=== PATIENT | female | born 1975 | race Caucasian/White ===

== ENCOUNTER 2021-11-03 08:10 | Emergency (ER) | payer BC, SELFPAY ==
[2021-11-03 08:53] LABS: Hematocrit 25.6 % (36.0-45.0); Lymphocytes % 22.7 % (15.3-44.8); MCV 81.4 fL (80-100); MPV 7.3 fL (7.6-11.3); RBC Red Blood Cell Count 3.15 M/uL (3.86-4.86)
[2021-11-03 09:05] LABS: Albumin 3.4 g/dL (3.4-5.0); Bilirubin Total 0.4 mg/dL (0.2-1.0); Protein, Total 7.6 g/dL (6.4-8.2)
--- NOTE | 2021-11-03 09:48 | RAD REPORT ---
EXAM DESCRIPTION: CTAbdomen Pelvis W Contrast - 11/03/2021 9:36 am CLINICAL HISTORY: Abdominal pain. Abdominal pain, acute, nonlocalized COMPARISON: No comparisons TECHNIQUE: Biphasic CT imaging of the abdomen and pelvis was performed with 100 ml non-ionic IV cont rast. All CT scans are performed using dose optimization technique as appropriate and may include automated exposure control or mA/KV adjustment according to patient size. FINDINGS: The lung bases are clear. The liver, spleen, pancreas, adrenal glands and kidneys are within normal limits. No bowel obstruction, free air, free fluid or abscess. The appendix is normal. No evidence of signi ficant lymphadenopathy. No suspicious bony findings. Fibroid uterus. IMPRESSION: No acute intra-abdominal or pelvic finding. Fibroid uterus.
[2021-11-03 11:02] LABS: Urine Blood Negative (Negative); Urine Glucose Negative (Negative); Urine Protein Negative (Negative); Urine Specific Gravity 1.015 (1.005-1.030); Urine pH 7.5 (5.0-7.0)
[2021-11-03 11:19] LABS: SARS-CoV-2 Antigen Rapid Res Negative (Negative)
--- NOTE | 2021-11-03 11:46 | EDPHYS ---
Physician Documentation [facility] Name: Lamar Salvador Age: 46 yrs Sex: Female : 1975 Arrival Date: 11/03/2021 Time: 08:13 Bed 5 Private MD: Mohini Ruiz H ED Physician Tyler Hannah HPI: 11/03 08:30 This 46 yrs old Female presents to ER via Ambulatory with complaints of Rectal Bleeding.jr11 08:30 The patient presents to the emergency department with bleeding from the rectum/anus, jr11 that is moderate, LAP. Onset: The symptoms/episode began/occurred 90 days. Modifying factors: The symptoms are alleviated by nothing, The symptoms are aggravated by nothing. Associate signs and symptoms: Pertinent positives: abdominal pain in the right lower quadrant and left lower quadrant, lower GI bleeding. no recent colonoscopy . 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 - Social history:: Smoking status: Patient reports the use of cigarette tobacco products, denies chronic smoking, but will smoke occasionally. ROS: 08:30 All other systems are negative. jr11 Exam: 08:30 Constitutional: This is a well developed, well nourished patient who is awake, alert, jr11 and in no acute distress. Head/Face: Normocephalic, atraumatic. Eyes: Extra-ocular motions intact. Lids and lashes normal. Conjunctiva and sclera are non-icteric and not injected. Cornea within normal limits. Periorbital areas with no swelling, redness, or edema. ENT: Nares patent. No nasal discharge, no septal abnormalities noted. Oropharynx with no redness, swelling, or masses, exudates, or evidence of obstruction, uvula midline. Mucous membranes moist. Neck: Trachea midline, no thyromegaly or masses palpated, and no cervical lymphadenopathy. Supple, full range of motion without nuchal rigidity, or vertebral point tenderness. No Meningismus. Cardiovascular: Regular rate and rhythm with a normal S1 and S2. No gallops, murmurs, or rubs. Normal PMI, no JVD. No pulse deficits. Abdomen/GI: TTP lower abd, no peritonitis MS/ Extremity: Pulses equal, no cyanosis. Neurovascular intact. Full, normal range of motion. Neuro: Awake and alert, GCS 15, oriented to person, place, time, and situation. No gross motor or sensory deficits. Vital Signs: 08:24 BP 169 / 104; Pulse 97; Resp 17; Temp 98.7; Pulse Ox 97% ; Weight 66.22 kg; Height 5 7 ft. 9 in. (175.26 cm); Pain 3/10; 08:30 BP 144 / 105; Pulse 94; Resp 17; Pulse Ox 98% on R/A; vg1 09:15 BP 141 / 103; Pulse 81; Resp 16; Pulse Ox 98% on R/A; vg1 10:50 BP 166 / 106 LA; Pulse 85; Resp 16; Pulse Ox 100% on R/A; vg1 11:00 BP 153 / 106 RA; Pulse 84; Resp 16; Pulse Ox 100% on R/A; vg1 11:45 BP 149 / 103; Pulse 70; Resp 16; Pulse Ox 99% on R/A; vg1 14:19 BP 146 / 100; Pulse 76; Resp 16; Temp 97.7; Pulse Ox 100% on R/A; Pain 2/10; bm7 16:11 BP 148 / 100; Pulse 80; Resp 16; Temp 98.0; Pulse Ox 100% on R/A; bm7 08:24 Body Mass Index 21.56 (66.22 kg, 175.26 cm) [facility] MDM: 08:30 Differential diagnosis: hemorrhoids, fissure, inflammatory bowel disease. Data jr11 reviewed: vital signs, nurses notes. 08:33 Patient medically screened. jr11 10:45 ED course: Pt states that bleeding is worse, cramping is worse with dizziness, will [place] jr11 for GI and colonoscopy. 11:44 ED course: Dr Li accepted SL. jr11 11/03 08:30 Order name: CBC with Diff; Complete Time: 08:55 jr11 11/03 08:30 Order name: CMP; Complete Time: 09:46 jr11 11/03 08:30 Order name: Lipase; Complete Time: 09:46 [facility] 11/03 08:30 Order name: Type And Screen; Complete Time: 09:53 [facility] 11/03 10:38 Order name: SARS RAPID; Complete Time: 11:43 eb 11/03 11:03 Order name: Urine Dipstick-Ancillary; Complete Time: 11:43 EDTX 11/03 08:30 Order name: CT Abd/Pelvis - IV Contrast Only; Complete Time: 09:53 [facility] 11/03 08:30 Order name: IV Saline Lock; Complete Time: 08:44 [facility] 11/03 08:30 Order name: Labs collected and sent; Complete Time: 08:44 [facility] 11/03 08:30 Order name: Urine Dipstick-Ancillary (obtain specimen); Complete Time: 11:08 [facility] 11/03 08:30 Order name: Urine Test (obtain specimen); Complete Time: 11:08 [facility] 11/03 11:09 Order name: Urine --Ancillary (enter results); Complete Time: 13:35 ss Administered Medications: No medications were administered Disposition Summary: 11/03/21 11:45 Transfer Ordered Transfer Location: Other Acute Care Facility jr11 Reason: Higher level of care jr11 Condition: Stable jr11 Problem: new jr11 Symptoms: are unchanged jr11 Accepting Physician: Dr. Jen Vasquez [facility](11/03/21 16:18) 7 Diagnosis - Lower Gi Bleed jr11 Forms: - Medication Reconciliation Form jr11 - SBAR form jr11 Signatures: Dispatcher [employer] [facility] Subhash Harrell RN RN jl7 Charla Mccoy Brittany RN RN bm7 Tyler Hannah MD MD jr11 Corrections: (The following items were deleted from the chart) 10:45 10:44 ED course: Per Sharron, transfer if GI unable to see in hospital. jr11 jr11 12:27 11:45 Jen perez 16:18 12[facility]27 [facility]
--- NOTE | 2021-11-03 11:46 | ER ---
Nurse's Notes [facility] Name: Lamar Salvador Age: 46 yrs Sex: Female : 1975 Arrival Date: 11/03/2021 Time: 08:13 Bed 5 Private MD: Mohini Ruiz H Diagnosis: Lower Gi Bleed Presentation: 11/03 08:24 Chief complaint: Patient states: Intermittent N/V/D with bloody stool and lower abd jl7 pain x 1.5 months. Coronavirus screen: At this time, the client does not indicate any symptoms associated with coronavirus-19. Ebola Screen: No symptoms or risks identified at this time. Initial Sepsis Screen: Does the patient meet any 2 criteria? No. Patient's initial sepsis screen is negative. Does the patient have a suspected source of infection? No. Patient's initial sepsis screen is negative. Risk Assessment: Do you want to hurt yourself or someone else? Patient reports no desire to harm self or others. Onset of symptoms was September 2021. Care prior to arrival: None. 08:24 Method Of Arrival: Ambulatory jl7 08:24 Acuity: CAL 3 jl7 Triage Assessment: 08:25 General: Appears in no apparent distress. uncomfortable, Behavior is calm, cooperative, jl7 appropriate for age. Pain: Complains of pain in right lower quadrant and left lower quadrant Pain currently is 3 out of 10 on a pain scale. Cardiovascular: Patient's skin is warm and dry. GI: Reports diarrhea, bloody stool, nausea, vomiting. 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 - Social history:: Smoking status: Patient reports the use of cigarette tobacco products, denies chronic smoking, but will smoke occasionally. Screenin:46 Abuse screen: Denies threats or abuse. Nutritional screening: No deficits noted. vg1 Tuberculosis screening: No symptoms or risk factors identified. Fall Risk No fall in past 12 months (0 pts). No secondary diagnosis (0 pts). IV access (20 points). Ambulatory Aid- None/Bed Rest/Nurse Assist (0 pts). Gait- Normal/Bed Rest/Wheelchair (0 pts) Mental Status- Oriented to own ability (0 pts). Total Greer Fall Scale indicates No Risk (0-24 pts). Assessment: 08:20 General: Appears in no apparent distress. uncomfortable, Behavior is calm, cooperative. vg1 Pain: Complains of pain in right lower quadrant and left lower quadrant Pain currently is 3 out of 10 on a pain scale. Pain began intermittently for 1.5 months. Neuro: Level of Consciousness is awake, alert, obeys commands, Oriented to person, place, time, situation. Cardiovascular: Patient's skin is warm and dry. Respiratory: Airway is patent Respiratory effort is even, unlabored. GI: Abdomen is flat, Bowel sounds present X 4 quads. Reports bloody stool, nausea. : No signs and/or symptoms were reported regarding the genitourinary system. EENT: No signs and/or symptoms were reported regarding the EENT system. Derm: Skin is intact, Skin is pink, warm \\T\\ dry. Musculoskeletal: Circulation, motion, and sensation intact. 10:03 Reassessment: Patient appears in no apparent distress at this time. No changes from vg1 previously documented assessment. Patient and/or family updated on plan of care and expected duration. Pain level reassessed. Patient is alert, oriented x 3, equal unlabored respirations, skin warm/dry/pink. pt stated "i didn't take my protonix this morning, would it be ok for me to take?" Provider notified and stated pt could take own medication. 11:06 Reassessment: Pt c/o lower ABD pain, rated 7/10, provider notified. vg1 11:06 Reassessment: Patient appears in no apparent distress at this time. Patient and/or vg1 family updated on plan of care and expected duration. Pain level reassessed. Patient is alert, oriented x 3, equal unlabored respirations, skin warm/dry/pink. 12:02 Reassessment: Patient appears in no apparent distress at this time. No changes from vg1 previously documented assessment. Patient and/or family updated on plan of care and expected duration. Pain level reassessed. Patient is alert, oriented x 3, equal unlabored respirations, skin warm/dry/pink. 14:22 Reassessment: Patient and/or family updated on plan of care and expected duration. Pain bm7 level reassessed. Patient is alert, oriented x 3, equal unlabored respirations, skin warm/dry/pink. 15:10 Reassessment: Patient and/or family updated on plan of care and expected duration. Pain bm7 level reassessed. Patient is alert, oriented x 3, equal unlabored respirations, skin warm/dry/pink. 15:13 Reassessment: Notified ERP of blood pressure and ERP did not want to give any orders. bm7 16:11 Reassessment: Patient and/or family updated on plan of care and expected duration. Pain bm7 level reassessed. Patient is alert, oriented x 3, equal unlabored respirations, skin warm/dry/pink. 16:12 Reassessment: notified patients concern of blood pressure to ERP. ERP states he will bm7 speak with patient. Vital Signs: 08:24 BP 169 / 104; Pulse 97; Resp 17; Temp 98.7; Pulse Ox 97% ; Weight 66.22 kg; Height 5 jl7 ft. 9 in. (175.26 cm); Pain 3/10; 08:30 BP 144 / 105; Pulse 94; Resp 17; Pulse Ox 98% on R/A; vg1 09:15 BP 141 / 103; Pulse 81; Resp 16; Pulse Ox 98% on R/A; vg1 10:50 BP 166 / 106 LA; Pulse 85; Resp 16; Pulse Ox 100% on R/A; vg1 11:00 BP 153 / 106 RA; Pulse 84; Resp 16; Pulse Ox 100% on R/A; vg1 11:45 BP 149 / 103; Pulse 70; Resp 16; Pulse Ox 99% on R/A; vg1 14:19 BP 146 / 100; Pulse 76; Resp 16; Temp 97.7; Pulse Ox 100% on R/A; Pain 2/10; bm7 16:11 BP 148 / 100; Pulse 80; Resp 16; Temp 98.0; Pulse Ox 100% on R/A; bm7 08:24 Body Mass Index 21.56 (66.22 kg, 175.26 cm) [facility] ED Course: 08:13 Patient arrived in ED. mr 08:13 Mohini Ruiz DO is Private Physician. mr 08:18 Tyler Hannah MD is Attending Physician. jr11 08:19 Chanell Kwan, RN is Primary Nurse. vg1 08:25 Triage completed. jl7 08:25 Arm band placed on right wrist. jl7 08:30 Initial lab(s) drawn, by me, sent to lab. Inserted saline lock: 22 gauge in right vg1 antecubital area, using aseptic technique. Blood collected. 08:46 Patient has correct armband on for positive identification. Placed in gown. Bed in low vg1 position. Call light in reach. Side rails up X 1. Door closed. Warm blanket given. 09:[address] via wheelchair. [facility] 09:38 CT Abd/Pelvis - IV Contrast Only In Process Unspecified. EDFL 09:54 called and left message with Dr. Wolff to call Dr. Hannah for patient consultation. eb 10:41 initiated a transfer with Sarah Zepeda Rn from the [facility]. eb 11:32 Sarah from [facility] called to ask for a 15 min extension. eb 11:[address] Li the hospitalist data acquisition technician for [facility] with Dr. Hannah eb for patient transfer consultation. 12:17 Diet: administrative approval given by Gini Zepeda Rn/ Patient has been accepted to [facility] B519/ Dr. Li has accepted the patient in transfer/ report to be called to [phone]. 15:10 No apparent distress. Resting quietly. transfer transportation to receiving facility. bm7 15:10 Report given to Beckie Granda RN. bm7 15:10 No provider procedures requiring assistance completed. Patient transferred, IV remains bm7 in place. 16:11 transfer transportation to receiving facility. bm7 Administered Medications: No medications were administered Medication: 08:47 VIS not applicable for this client. vg1 Outcome: 11:45 ER care complete, transfer ordered by . jr11 16:17 Transferred by ground EMS Note: [facility] bm7 16:17 Condition: stable 16:17 Instructed on the need for admit. 16:18 Patient left the ED. bm7 Signatures: Dispatcher [employer] Doris Larson mr Subhash Harrell RN RN jl7 Charla Mccoy Victoria, RN RN vg1 Supriya Baeza, RN RN bm7 Gisele Alvarez RN RN jh6 Tyler Hannah MD MD jr11 Corrections: (The following items were deleted from the chart) 11:36 10:41 initiated a transfer with Gini Elizondo Rn from the [facility] eb 11:45 11:[address] Chau the hospitalist data acquisition technician for [facility] with Dr. Hannah for eb patient transfer consultation. eb 12:26 11:[address] Chau the hospitalist data acquisition technician for [facility] with Dr. jf Hannah for patient transfer consultation. eb
[2021-11-03 13:31] LABS: Urine Specific Gravity/Preg 1.015 (1.005-1.030)
[2021-11-03 17:44] VITALS: O2SAT 100
[2021-11-03 17:47] VITALS: BP 148/100; TEMP 98
== END 2021-11-03 16:18 ==
LOC: ER 08:10
DX: K92.2 Gastrointestinal hemorrhage, unspecified (principal); F41.9 Anxiety disorder, unspecified; F17.210 Nicotine dependence, cigarettes, uncomplicated; Z98.82 Breast implant status; Z20.822 Contact with and (suspected) exposure to COVID-19
CPT/HCPCS: 36415; 74177; 80053; 81003; 81025; 83690; 85025; 86850; 86900; 86901; 87811; 99285; Q9967

== ENCOUNTER 2021-12-15 18:53 | Emergency (ER) | payer SELFPAY ==
--- OUTSIDE RECORDS SUMMARY | 2021-12-15 18:57 | XMS REPORT | Continuity of Care Document ---
:1975 Author Organization [facility] t Address [address] [place] [address] Care Team Providers Name Role Phone CISCO ANDERSON Attending Clinician Unavailable Cisco Anderson MD Attending Clinician Navneet Guzman MD Attending Clinician Tyler Damon MD Attending Clinician Larry Dunn CRNA Attending Clinician Zulema Beach MD Attending Clinician NAVNEET GUZMAN Admitting Clinician Unavailable Problems Condition Condition Condition Status Onset Resolution Last Treating Co mments Source Name Details Category Date Date Treatment Clinician Date Iron Iron Disease Active [facility] deficiency deficiency 813 [facility] anemia due anemia due 00:00: Me dical to chronic to chronic 00 Ce nter blood loss blood loss BRBPR BRBPR Disease Active [facility] (bright (bright 8[facility]12 [facility] red blood red blood 00:00: Medi christopher per per 00 Center rectum) rectum) 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 nativdiad 8-12 [facility] 00:00: Medical 00 Surprise 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 anxiety d anxiety 8-12 [facility] disorder disorder 00:00: Medica l 00 Center Tobacco Tobacco Disease Active [facility] use use 8-12 [facility] 00:00: Medical 00 Center GERD GERD Disease Active [facility] (gastroeso (gastroeso Soha kes phageal phageal Medical reflux reflux Center disease) disease) Allergies, Adverse Reactions, Alerts Allergy Allergy Status Severity Reaction(s) Onset Inactive Treating Comm ents Source Name Type Date Date Clinician NO KNOWN Allergy Active [facility] Family History Family Member Diagnosis Comments Start Date Stop Date Source Maternal grandmother Heart disease C [facility] Social History Social Habit Start Date Stop Date Quantity Comments Source History [facility] Alcohol Frequency Medical Center History SDOH [facility] Alcohol Std Drinks Medica l Center History SDOH [facility] Alcohol Binge Medical [facility] History of tobacco Cigarette Smoker [facility] use [facility] Center Alcohol intake 2021-11-06 2021-11-06 [facility]00 of alcohol Medical Center (finding) History [facility] 2021-11-03 2021-11-[address] [facility] Alcohol Comment 00:00:00 00:00:00 Medical C enter Tobacco use and 2021-11-03 2021-11-[address] [facility] exposure 00:00:00 00:00:00 Medical Center Sex Ass[birth year] At [birth year] [facility] [address] Soha kes 00:00:00 00:00:00 Medical Center Smoking Status Start Date Stop Date Source Current some day smoker 2021-11-03 00:00:00 [facility] Medications Ordered Filled Start Stop Current Ordering Indication Dosage Frequency Signature Comments Components Source Medication Medication Date Date Medication? Clinician (SIG) Name Name ALPRAZolam Yes anxiety 1mg Take [address] (XANAX) 1 -14 by mouth [facility] MG tablet 11:22: every Medical 01 night as Center needed for Anxiety. ferrous 2022- Yes 325mg Q.5D Take [address] sulfate 325 11-05 tablet [facility] (65 FE) MG 00:00: 23:59 (325 mg Med ical EC tablet 00 :00 total) by Cente r mouth 2 (two) times daily. pantoprazol 2021- No 40mg QD Take [address] e 11-05 tablet (40 [facility] (PROTONIX) 00:00: 23:59 mg total) M edical 40 MG 00 :00 by mouth Center tablet daily for 30 days. Vital Signs Vital Name Observation Time Observation Value Comments Source HEIGHT 2021-11-03 23:26:00 175.3 cm WEIGHT 2021-11-03 23:26:00 66.225 kg HEIGHT 2021-11-03 23:26:00 175.3 cm WEIGHT 2021-11-03 23:26:00 66.225 kg HEIGHT 2021-11-03 23:26:00 175.3 cm WEIGHT 2021-11-03 23:26:00 66.225 kg Systolic blood 2021-11-05 08:00:00 124 mm[Hg] [facility] Diastolic blood 2021-11-05 08:00:00 79 mm[Hg] [facility] Heart rate 2021-11-05 08:00:00 75 /min [facility] Body temperature 2021-11-05 08:00:00 37.17 Gayle [facility] Respiratory rate 2021-11-05 08:00:00 18 /min [facility] Oxygen saturation in 2021-11-05 08:00:00 97 /min [facility] Arterial blood by Medical Ce nter Pulse oximetry Body height 2021-11-03 23:26:00 175.3 cm [facility] Body weight 2021-11-03 23:26:00 66.225 kg [facility] BMI 2021-11-03 23:26:00 21.56 kg/m2 [facility] Procedures Procedure Date / Time Performing Source Performed Clinician CBC (HEMOGRAM ONLY) 2021-11-05 [facility] 04:07:00 [facility] BASIC METABOLIC PANEL (7) 2021-11-05 [facility] 04:07:00 [facility] BASIC METABOLIC PANEL (7) 2021-11-[address] [facility] 18:07:00 [facility] HEMOGLOBIN AND HEMATOCRIT 2021-11-[address] [facility] 18:07:00 [facility] PROLACTIN 2021-11-04 [facility] 18:07:00 [facility] FOLLICLE STIMULATING HORMONE (FSH) 2021-11-04 Af, Coriname d [facility] 18:07:00 [facility] LUTEINIZING HORMONE (LH) 2021-11-04 Afaq, Muhammed [facility] 18:07:00 [facility] TISSUE EXAM 2021-11-[address] [facility] 12:10:00 [facility] ESOPHAGOGASTRODUODENOSCOPY 2021-11-04 Baylee, Zulema [facility] 12:04:00 [facility] ABORH, MANUAL 2021-11-03 Helekar, Roselia [facility] 23:50:00 [facility] SARS-COV2/RT-PCR ([facility]) 2021-11-[address] [facility] 22:28:00 [facility] IRON, TIBC, % SAT. (WITHOUT 2021-11-03 Afaq, Muhammed [facility] FERRITIN) 22:19:00 [facility] CBC W/PLT COUNT & AUTO DIFFERENTIAL 2021-11-03aq, Kenodessam ed [facility] 22:19:00 [facility] COMPREHENSIVE METABOLIC PANEL 2021-11-[address] [facility], Muhammed [facility] 22:19:00 [facility] TSH/FREE T4 IF INDICATED 2021-11-03aq, Muhammed [facility] 22:19:00 [facility] FERRITIN 2021-11-03 Afaq, Muhammed [facility] 22:19:00 [facility] LIPID PANEL 2021-11-03 aq, Muhammed [facility] 22:19:00 [facility] HEMOGLOBIN A1C 2021-11-03 aq, Muhammed [facility] 22:19:00 [facility] PROTHROMBIN TIME/INR 2021-11-03 Afaq, Muhammed [facility] 22:19:00 [facility] MAGNESIUM 2021-11-03 Afaq, Muhammed [facility] 22:19:00 [facility] TYPE AND SCREEN, AUTOMATED 2021-11-03 Afaq, [facility]hammed [facility] 22:19:00 [facility] CBC W/PLT COUNT & AUTO DIFFERENTIAL 2021-11-03 Albaroaq, Sneha ed [facility] 22:19:00 [facility] SCREEN, URINE 2021-11-03 Afaq, Corinamed [facility] 22:03:00 [facility] RAPID DRUG SCREEN, URINE 2021-11-03 Afaq, Corinamed [facility] 22:03:00 [facility] Plan of Care Planned Activity Planned Date Details Comments Source Future Scheduled 2024-11-03 Lipid panel (procedure) [facility] Test 00:00:00 [code = 42041628] Medical Ce nter Future Scheduled 2021-11-23 INFLUENZA VACCINE (#1) [facility] 00:00:00 [code = INFLUENZA Medical Ce nter VACCINE (#1)] Future Scheduled 2021-03-[address] [facility] Test 00:00:00 (12+) [code = [facility] Center DEPRESSION SCREENING (12+)] Future Scheduled 1996-02-20 Screening for malignant [facility] Test 00:00:00 neoplasm of cervix Medical C enter (procedure) [code = 660582543] Future Scheduled 1994 DTAP/TDAP/TD VACCINES [facility] Test 00:00:00 (1 - Tdap) [code = Medical C enter DTAP/TDAP/TD VACCINES (1 - Tdap)] Future Scheduled 1993 HEPATITIS C SCRE[facility]ING [facility] 00:00:00 [code = HEPATITIS C Medical Center SCREENING] Future Scheduled [address] [facility] Test 00:00:00 0-64 YRS (1 - PCV) Medical C enter [code = PNEUMOCOCCAL VACCINE 0-64 YRS (1 - PCV)] Future Scheduled 1975 COVID-19 VACCINE (#1) [facility] 00:00:00 [code = COVID-[address] VACCINE (#1)] Future Scheduled 1975 CT Colonography (combo) [facility] Test 00:00:00 [code = CT Colonography [facility] (combo)] Future Scheduled 1975 Screening for malignant [facility] Test 00:00:00 neoplasm of colon Medical Ce nter (procedure) [code = 686313647] Future Scheduled 1975 Screening for malignant [facility] Test 00:00:00 neoplasm of colon Medical Ce nter (procedure) [code = 551243495] Future Scheduled 1975 Screening for malignant [facility] Test 00:00:00 neoplasm of colon Medical Ce nter (procedure) [code = 042813393] Future Scheduled 1975 Screening for malignant [facility] Test 00:00:00 neoplasm of colon Medical Ce nter (procedure) [code = 021497143] Future Scheduled 1975 Sigmoidoscopy [code = [facility] Test 00:00:00 Sigmoidoscopy] Medical Cente r Encounters Start End Encounter Admission Attending Care Care Encounter Source Date/Time Date/Time Type Type Clinicians Facility Department ID 2021-11-03 2021-11-05 Inpatient ER JEN, [facility] General Med [id number] [facility] 17:49:00 11:21:00 [facility] 2021-11-03 2021-11-05 Hospital Jen Cisco [facility] [id number] [facility] 17:49:00 11:21:00 Encounter Navneet Guzman [facility] 2021-11-04 2021-11-04 Anesthesia Tyler Damon [facility] [id number] 12:04:00 12:18:00 Event Larry Dunn Mannie [facility] 2021-11-04 2021-11-04 Surgery Baylee [facility] [id number] 11:35[facility]00 [facility]05[facility]03 2021-11-03 Travel [facility] [id number] [facility] 00:[facility]:00 00:00:00 [facility] Results Test Description Test Time Test Comments Results Result Comments Source Tissue Exam 2021-11-13 16:32:26 Test Item Value Reference Range Interpretation Comme nts Case Report (test code = 104) Surgical Pathology Report Case: [id number] Authorizing Provider: Zulema Beach MD Collected: 11/04/2021 12:10 PM Ordering Location: [facility] Med Surg 5th Floor Received: 11/06/2021 09:06 AM Pathologist: Roselia Wolf MD Specimens: A) - Small Bowel, NOS, biopsy B) - Biopsy, Gastric, antrum and body ADDENDUM (test code = 3381) w6qinBQaRFEhcGW2PySuGTXsa1baq4TssPLjtQF y VEabtAKypsCjkh30yHI1sZ10RE5hGVEfRaN5CGEg qxD7Box5XTKkJMNqjWMuH285n2ozd6yyjfSmuKD5 kTdpSVYmkqiyZlB5WGteMQVhjcieRAu3SRtzKAYe uKR3PSVihWCwH5KuEXKiLQ4gydx5FQH1OSruJBMd AoA8NFOnxDGwUZFubQxtPZauy243MHY1HyAiZNZg dlMllIwcwK8rTrQnBSHHoLcjQIAwCIFaEOUlTAsh NBkkz5FyGXG3cqKyFKTveiYedBcsNNBmq0PptLPd LpFraO54bs4taHE6z9CxVN1zC8HzOKT3tCS4JXCf lqXYVCkzD59dGDV5APGzzDunw2DkUgdkTEPiJIZK RUdBVElWRVxwYXJcflxwYXIgVGhlIGludGVycHJl yQB0pI3oSJ1bJPCcsGGxQ2BhGDSwkkEcnVVaXSQ3 vCRwvYTuKI6yOIwadIXpx2dgw6OfJ6zsyMlmtNM2 WM4qIEHcHHIoDQtmh8WxxE2qKbgsWZOnwzfFPZmU Y6HYI8KZLfSNTGqBHwtnjBEwVTvttALbe5tzt6Oq C3rkpQkqcEW0LWRgD9qybHBbzPN3MJV0jL3iGPtc jbYzRERam5RuMCPbWKPjBfX5uQ0oQHL1KwDPuFjl HMH3MmB6VThaRWYgYS6oEGrgTKpwC2AitUDrJHXH BZAkh4rwJ6buLDIaj7ZebT2rcBZ4oHZwJJLfhNV6 MIYzUOQ5WNbqzWRnCVCnJEKjaGVwaKWkOf4seMFa S2TbZ0ndavBhcTBnqOE2sXObUXemrfHiOHA7JSRs aS3vKE6rDZEpsZCvFU4snZPrBIKsWQWfDVKsDCRk i0MaHVYqut83AZZpTdqllEszDFAzTv8sDg3uKMIj nbTyNFH3GqOUTS8wuydrdCFkiRbmqg3xRUvkJFSR WSIfUTFbBLG1SZVkpD3iOXL8rZI6PCF5P2viV6pw DHFmagWnWD2wPMYiyYPbfzPfNWjcLU2ppGBkLDSs o8KbyapzQLRbPAH1YWZ2IWsaLAYuRJVuPa5bQVXb bV1nJ5AcJRI3gdEfh3SxGhBJiURkfS98pWSkoc39 BWZtWGGuO9CtOTUwOOQsAQgqdjOjeLjuSSBdr07n sXBfbwLha5DogyRpOTFiB0ziDOSupEUeeNRyg6Nf eW5ffUMuvrNdXKR4pKBeGODrdQ5wKSTyyNjhZALm oI1zY0GmSHhbEj4sEHHhwimkYZ7wrz94BN5xnxMv GG6oixLqCK95nbRxRvGhUNc4DVhRESyQCMi1UIEd suMeyEDddNOuEGPrgX8gzEUvYs0xpDWpdBjrGXFs yWOuIHzrxPbnV3vatulfJXxcxGTgn6UxtJ1raPL1 IZI0tC9yBnxdKQDlotzeJFTwH7PECFQNURK7ZWz5 MzQyXHBhclx+IFxwYXJ9 DIAGNOSIS (test code = 3220) t1hdwTOdYYAkq6gyMREjvCKbGcUeVfReYfBcFl pc dWMxIHtccnRmMVxlcGljOTYwMlxhbnNpXHNwbHRw H9XqqcxvAHxuPJ6qBQ5iiBfcaDSmpPCwOZPnXoBo r5cpp293pXZsi9khTLTMnedphPd2gKybY82pj0Y8 DqngY08bpXGeAPO2UIZaAOGljCGhICNoCKW9TDDu wYKfY9uyMHZdCR3qmkujZEnsRAmpYIDkxXX1RLSw hVDiH9VaJADgLFrnCSLsvck4QiWgCq5cpTErjMaa BAaxCCHjUDHtFWzlAANyXeEbUM0yE69KNOdcAk2C CMmuWe3XHTCWZmTII7CNLGgWLCVKK9UQGQacyCHg GYBbVBTNCVdSEXZIZ8GHMK4RT49BGJBWPVXMIL5C IVCGUQaWHD4UGGJpMCyETKDDNFwFFfucKBQwSZ4t Ut3dNoMHLYBIZVXlB8LlERXDULhPEZNUI7KZBgmL VBWoBSKTH2DHMAukEDLyZR9uNk1zWmNBHUGMEOUq X0HmW9JKZXTZDZKWI8FIM7ZuE3CCOkxwUVXtIF5d Gt1xH4NNXtSDK18JZjwxEZjWBMfZE8hHBT4XKB5B LXrVXcJOJ7zuKk7WQGCjmFEsGBTycoXDKnMWWA3Q NVZNTMNDPwJVF1PAOVdJVUNHC6ENFGuftHWxLETl IHSHJLMPWBHNLHQFWVlOQ0CNFQTcNHXZV8KDOHtW TCjsHFpGKYVLDJOBNjqCZRpWZ1CUMXMHBsEYEFGM NT0RU0TULq4OBCxiQHPULLLDCUjzxLBuSBFeEE1I IElOVEVTVElOQUwgTUVUQVBMQVNJQSBTRUVOXHBh fwDzTNSSEbWBBWKMDNOBTQZfB9EwBELXNWrXMS5J OJALG4KXLGenAOFhRK4iAQ8MQM6CKDzRYB6WDNAR AOUTJXYDNXGVYzITK0SfAUEQENXKWsQFEFKNDZDM EV3HXJJMSgQTTSvXAuATA15BEwGSGjCPRKLOZpAY NOFIVXOBNaNdM4vBNYHIW6bHT1cuoKFzIDTfmd18 VCF5HmJfb2G4PKS6HBOkGVUft7aqBGZbsUWpAuSx VxTeEcQyQupgvAFuSACtSwIqa2pji303tNRbb6ib ZZZdQiH0rEZtJSJriOVvD048CQKfHJnvl3jyd2Pd QXDgkKIyb4J8LHFLndhnaQz0uRtcM06iv8I5Mmgt F0zkZAEcDAZdP9OyWR5vUMDhAkm6JZW4HEQ2NWYd LYPaF9UvZU1eMDUtlHJrBTr8s0agyEfnWKRcQCP2 t4vqJEmdbrUgFG9bdo0kyLj1w1evfnTgIEWgFBCx dOIUCQOtP2UzxOtdTy1lqJx0yXcmMiyaUUY4Gso2 XK9zph12ukc4bTbrZAOtriqgUmR0RIfqHGSzgetn PLi1QQvfXUGrkGA2IDIfjFPiE1WjQURwPW3jzwq5 JID9POtiVFTfNpP6RAXkkIRiGMGcxIjbXDcfd125 IFR8PfWjKA0cV8Eqg4V0pA1qjFIsCNVfjIKhVhXb SMYjig9rbMEhAKogp4SnZVB4wcM7aGGfeLJfNQUl SvJ3VFdaHR5kee59TRUiABA9tm7wzTExvOvtzoQf lCFfFTonJ0SxXCMqi676BZHfS9UhWFEsa4B5rlXe OwBeTLNgzZK0eqC5PAEbPF6gtsxic0xrRFogANrn PBSuwhC2jhT0LVXsjPOzL5DnbB5rDGAiZA8nqwef k1yhEWV6RKizKKDkREH9QkLaERKqx7Zqsla6LxAw m8RidVFnANmvD05km574SXKbqqQtP3mktUCdzose tBAyttgyVDftbkI8OHDwFCugxvayUMLnKFcjF3ka SfGkWWAkdYcuYMhbw7UaBDXlNHPmAaDacPKwDPNs Big7JYEnvDTpUZRfNrAlS7fzkwkkCkDBKZHwb0ss A9rltRPLbRRvX0OxFTmvipHeNTbrDExkVpolPUVw Nw66HJUyHPLghz93 CPT Code(s) (test code = 8617) w2gkeXFgLWJniBM4UbIlATZgj5vsm0LbpKQs cGFy NOnjsEWhjuUofq41sCO9bN91ZA8gPCDuGtP3EBCx scX8Uvd0JOUhOZVbcCMdY255l8vdo5hiwzQjrHT3 iZlrRKDnrkkoAmJ7GEefRLWfvgmoDAc9WRqwCXAz vOG4IIVgyBBvW8VtDFDpMM8frri6JQL9TFafRMUx UnA2CTBjrVVaGQOywEjzMUbwz930XXW7RhYpPJAg unUlhMbjgU9cQpDrKXV8BEYuJKFNAFRcpAGqvV== CLINICAL HISTORY (test code = 3356) r8rebFKxZQNxhKW7VvCwCTFsa6poo6B sdHBncGFy XBzudIRwzzCdhb62mEF2cP15RV3fCFKdVpR1RKRh clV2Snb5URRrAZIhzWItI496t9hoq1wxsuLdiDD7 fOnpHUZgznddBwX0EWpqAMXgswfqNMs4UFryXQJf nLW1EZCyoPLgL3UwJTMcMD8pgnm3TIO0HEwbEVTj FcL3NSTfpWHbPMXhwYdkSGzea299ALW3XaVaKPYw riScoQrubX4xZyIcREIXvQSvQZ0wNPQasq4= GROSS DESCRIPTION (test code = g2cgjBSwTIOjgOXYNPMeD1pmqdQbCYCgxTHz [facility] [id number]) [file] MF6jfZ3HmT== MICROSCOPIC DESCRIPTION (test code = j7urqEIiSJPsuIN3PiVeBUVru5scu1 BsdHBncGFy 3371) HVdagZWuzaYadq33bZW3iG92WT4yMTWlBzK5HVDj plR3Wbs6OAQvSHPjrNNmE825e5wbc5fjvnOhrFF9 oDxwHTKenswiUiX5GRuvESAkkzvtLXj0IQmsCAOj aET7ESScvFLoN7TcJDTkTM3ixrk3IJZ1DSpmNZKl QhG6ZDVjeYBzYMUgbTzsEOfvk730UAE3DsTdIORg tsKptBgvlE4oUaUgSIIEPCWYE2SZEPOwlKGhgG== SPECIAL STUDIES (test code = 3376) e7vvtXSrRDEyv7zfMGOmpOWnQcYbKoJg ZnRuYmpc jLGdGPalogUnGXynm8PqQ3FrWyPtZCglaqUjWTEi HzdlbhqtDGJbLBN9uvVtEBAaJArrNOBgGHgyCw3g cAFmrTkoVnDmBXMdz6vwiyYOiqcbfQm2d1fwGUTg SaG1iDVqAJgsE2fiddZmiNTfZ5XnoOMubXv5q9vr OqDkMyG1pQAwZWfsK1mduvZbzWJkHUCxYFp2iZ53 YOPviS1rtDBfKPffifCiVhR4ODgaVZIxMgW5HTAu jWEqQGDdG2vvNPKqPQoxSSYfVVgvpAYgWOW5bKvo y4D2lOGwpUQeiSgmXeRkEeUmAoXGo6HpQBd6gAef V8IsBWBmDwG7tZRfQWOmVHnpSUBlHWMnfjV0uSax zmTxc01boRElHPDyKTLiOpFcpYonUZStOARKk3Wf pLtaKLQ0dHc1hKloVcmdFOZ6Tjw3DA3wwh70yyl5 yTlsGOIbpvnjHfD7YRixXBIfgqwlFFr1DEmvLJZe aEI3VYVblVZzI2QdAZQzVC3cmrq8FUS0UZngXBXv FwR9FXDumVDrSEIvxZzyHVxau932XDV4ZuUwBO6t L0Cqn5A4bJ6roFMbZRAadZXtXrLtALTvch8afOQj MYcau8SuBXS9vsM6nWWehIMpRILfXO65Jfsxn0Qf Ehwmo2FfQ54xoTY4RWujm8ncZY6gGmN1anJyDDcx e9xoxX4lXxI0GEqjNC5kXO9fPSUmtL4wmbjeYRZb GwVthfnbPPGalRnlfpEwKe4hvYxqSCY8ODvoW3tm pF3wVfZ8HCphB1bycO0wCXl8ALseeGQ1GQJzyQ1i LS2wdzfit2cbNWhiRAqsVSAdqaK5uvB0VGRmgNZx I4IcpO1hAIImGP9xuyocz1nsZRR7GAeiLTTfJFU2 SfZbTPDib7Qavsf3NrAab9PoaBQiYNkuJ61he636 SDIhdxTqF5xtmLEbjeisnQEvyhxzDJqnpvW5CEDh XHBsYWluXGYxXGZzMjJcbGFuZzEwMzNcaGljaFxm NJfnPrPoCZMeONroU7eqHkSpT3FqIFHyLcIdKRfh ITafcPWjdYUrlHG9sC4xUY8hABJefYLvZ8FwOBMh llBslCHoYSU0kLHurDFuPL1vBQnjjYDne2afv0Bn T7msjPbqeAP5XS7wWRErBWKpFIssb6ZqoL7uTrtx cWJohvzoBYmkasOeMKebqzyhFEAsONgjI2veCaIb ZWRfaXzsWQorc8RhVAJoSHAeAteqltSnLDn0fcZf BGOhedebJLTtfKidyV7tYyEbPiApOpaaDP2iGSVk J2jnrZAhIVRqNFKaM7euRpBluF6msVwdEGrqRsWp DzKoCiXBs677qg4bIJYyvWQavaQIoBSxnO7vGUzj UIffCHoxxTCzOGzfr8doQKHru4f0qOFyAMOflsXy f7hsVXsybgFuVONmmVOttAWxYPJjr04jDDtilTva sScyXZMxf3QppUado4IfJiItYIyxm9CdJ28gmLDm yLTopMerPYYcsuAkCFCte89yu3fmFRGuFfR3aSSg kWI2zEBjvYMns1SkmSzhVRAay2inYRDoai2rqzef sSGde4BnsW9oumlzKKqncJEipbXpAFQpa1x1iGLx WFVbZFXtESyhpGk0JBOor377sm5nazB0nERmIJO9 YWlsYWJsZSBhcmUgZXZhbHVhdGVkXHBsYWluXGYx XGZzMjJcbGFuZzEwMzNcaGljaFxmMVxkYmNoXGYx GDotT8wxJpUeC7XjIEJaOnNnpPYyI9rzfOYxYWXm YWluXGYxXGZzMjJcbGFuZzEwMzNcaGljaFxmMVxk MhAsNISnXOhpO9cgLaJoI2PbHIIrDmUtVTmqxZNm wgtiTYsrxkTyREefdmxpCTCiNYziW4dpEqMyUUVx iWapOHgop9HvBDZwJNZrZrxaduQyALy0ddBaSDLa oqorxIQjoceyMOdflcXtPWzhgvzhYUVgQPxmH1yu [file] NvjtVXW5gN== [id number] 16:32:26Surgical Pathology Report Case: [id number] Authorizing Provider: Zulema Beach MD Collected: 11/04/2021 12:10 PM Ordering Location: [facility] Med Surg 5th Floor Received: 11/06/2021 09:06 AM Pathologist: Roselia Wolf MD Specimens: A) - Small Bowel, NOS, biopsy B) - Biopsy, Gastric, antrum and body This addendum is issued to report the result of immunohistochemical study for Helicobacter pylori:- NEGATIVE The interpretation of this case included the use of immunohistochemistry or special stains. HELICOBACTER PYLORIImmunohistochemistry technical testing was performed at [facility], Pathology Laboratory where it was developed and its performance characteristics were determined. It has not been cleared or approved by the U.S. Food and Drug Administration. The FDA has determined that such clearance or approval is not necessary. The test is used for clinical purposes. It should not be regarded as investigational or for research. This laboratory is certified under the Clinical Laboratory Improvement Amendments of 1988 (CLIA-88) as qualified to perform high complexity clinical laboratory testing. CPT CODE: 89926 Addendum electronically signed by Roselia Wolf MD on 11/13/2021 at 4:32 PMA. SMALL BOWEL,NOS, ENDOSCOPIC BIOPSY: - SMALL BOWEL MUCOSA WITH NO PATHOLOGIC ALTERATION - NO FEATURES OF PEPTIC DUODENITIS PRESENT - NO FEATURES OF CELIAC DISEASE SEEN- NO GRANULOMAS, DYSPLASIA OR MALIGNANCY NOTEDB. STOMACH, ENDOSCOPIC BIOPSY: - ANTRAL TYPE GASTRIC MUCOSA WITH MILD CHRONIC GASTRITIS WITH MICROFOCAL ACTIVITY - NO INTESTINAL METAPLASIA SEEN - NO DYSPLASIA OR MALIGNANCY NOTED - IMMUNOHISTOCHEMICAL STAIN FOR HELICOBACTER PYLORI IS BEING DONE; AN ADDENDUM REPORT WILL FOLLOW Signing Pathologist Direct Phone Line: [phone] signed by Roselia Wolf MD on 11/09/2021 at 2:36 [id number] X 2Bleed. A. Small Bowel, NOS.Received in formalin labeled with the patient's information and labeled "small bowel, NOS, description: biopsy" is a single m[place]o-white mucosal piece 0.4 cm in maximum dimension submitted entirely in cassette labeled A1.B. Biopsy, Gastric.Received in formalin labeled with the patient's information and labeled "gastric tissue, description: antrum and body" are two m[place]o-white mucosal pieces measuring 0.4 cm in maximum dimension submitted entirely in cassette labeled B1. BH/ew PERFORMEDThe interpretation of this case included the use of immunohistochemistry or special stains.Control Slides Examined: In-house known positive controls were evaluated along with the test tissue. These control slides run alongside of the patients sample show appropriate staining. Internal positive and negative controls when available are evaluated Immunohistochemistry technical testing was performed at [facility], Pathology Laboratory where it was developed and its performance characteristics were determined. It has not been cleared or approved by the [place].S. Food and Drug Administration. The FDA has determined that such clearance or approval is not necessary. The test is used for clinical purposes. It should not be regarded as investigational or for research. This laboratory is certified under the Clinical LaboratoryImprovement Amendments of 1988 (CLIA-88) as qualified to perform high complexity clinical laboratorytesting.PROLACTIN 2021-11-05 13:06:29 Test Item Value Reference Range Interpretation Comments PROLACTIN (BEAKER) (test code = 10.49 ng/mL 5.18-26.53 758) Fruit Coordinator ID - ADMINBASIC METABOLIC [id number] 06:37:59 Test Item Value Reference Range Interpretation Comments SODIUM (BEAKER) 139 meq/L 135-148 (test code = 381) POTASSIUM 3.4 meq/L 3.6-5.5 L (BEAKER) (test code = 379) CHLORIDE (BEAKER) 107 meq/L 98-106 H (test code = 382) CO2 (BEAKER) 20 meq/L 20-29 (test code = 355) BLOOD UREA 5 mg/dL 10-26 L NITROGEN (BEAKER) (test code = 354) CREATININE 0.62 mg/dL 0.50-1.20 (BEAKER) (test code = 358) GLUCOSE RANDOM 95 mg/dL 70-110 (BEAKER) (test code = 652) CALCIUM (BEAKER) 8.7 mg/dL 8.5-10.5 (test code = 697) EGFR (BEAKER) 111 Interpretati on of eGFR (test code = mL/min/1.73 values Stage De scription 1092) sq m Result G1 Geraldine l or high >=90 G2 Mildly decreased 60-89 G3a Mildl y to moderately 45-5 9 G3b Moderately to s everely 30-44 G4 Severl y decreased 15-29 G5 Kidney failure <15Reported eGF R is based on the CKD-EPI 2020 equation that d oes not use a race coefficientEsti mated GFR is not as accur ate as Creatinine María Elena moser in predicting glom erular filtration rate . Estimated GFR is not appl icable for dialysis patien ts Fruit Coordinator ID - [id number] ID - [id number] ID - [id number] ID - [id number] ID - [id number] ID - [id number] ID - [id number] ID - [id number] ID - [id number] ID - [id number] ID - [id number] ID - [id number] ID - [id number] (HEMOGRAM ONLY)2021-11-05 05:58:52 Test Item Value Reference Range Interpretation Comments WHITE BLOOD CELL COUNT (BEAKER) 5.9 K/ L 4.0-10.0 (test code = 775) RED BLOOD CELL COUNT (BEAKER) 3.04 M/ L 4.00-5.00 L (test code = 761) HEMOGLOBIN (BEAKER) (test code = 8.2 GM/DL 12.0-15.5 L 410) HEMATOCRIT (BEAKER) (test code = 26.4 % 36.0-46.0 L 411) MEAN CORPUSCULAR VOLUME (BEAKER) 86.8 fL 82.0-99.0 (test code = 753) MEAN CORPUSCULAR HEMOGLOBIN 27.0 pg 27.0-33.0 (BEAKER) (test code = 751) MEAN CORPUSCULAR HEMOGLOBIN CONC 31.1 GM/DL 32.0-36.0 L (BEAKER) (test code = 752) RED CELL DISTRIBUTION WIDTH 18.6 % 12.0-15.0 H (BEAKER) (test code = 412) PLATELET COUNT (BEAKER) (test 199 K/CU MM 150-430 code = 756) MEAN PLATELET VOLUME (BEAKER) 10.0 fL 6.0-11.5 (test code = 754) NUCLEATED RED BLOOD CELLS 0 /100 WBC 0-0 (BEAKER) (test code = 413) BASIC METABOLIC [id number] 19:37:17 Test Item Value Reference Range Interpretation Comments SODIUM (BEAKER) 138 meq/L 135-148 (test code = 381) POTASSIUM 3.8 meq/L 3.6-5.5 (BEAKER) (test code = 379) CHLORIDE (BEAKER) 107 meq/L 98-106 H (test code = 382) CO2 (BEAKER) 20 meq/L 20-29 (test code = 355) BLOOD UREA 5 mg/dL 10-26 L NITROGEN (BEAKER) (test code = 354) CREATININE 0.69 mg/dL 0.50-1.20 (BEAKER) (test code = 358) GLUCOSE RANDOM 110 mg/dL 70-110 (BEAKER) (test code = 652) CALCIUM (BEAKER) 9.2 mg/dL 8.5-10.5 (test code = 697) EGFR (BEAKER) 108 Interpretatio n of eGFR (test code = mL/min/1.73 values Stage De scription 1092) sq m Result G1 Geraldine l or high >=90 G2 Mildly decreased 60-89 G3a Mildl y to moderately 45-5 9 G3b Moderately to s everely 30-44 G4 Severl y decreased 15-29 G5 Kidney failure <15Reported eGF R is based on the CKD-EPI 2020 equation that d oes not use a race coefficientEsti mated GFR is not as accur ate as Creatinine María Elena ehsan in predicting glom erular filtration rate . Estimated GFR is not appl icable for dialysis patien ts Fruit Coordinator ID - JUSTINOperator ID - JUSTINOperator ID - JUSTINOperator ID - JUSTINOperator ID - JUSTINOperator ID - JUSTINOperator ID - JUSTINOperator ID - JUSTINOperator ID - JUSTINOperator ID - JUSTINOperator ID - JUSTINOperator ID - JUSTINOperator ID - JUSTINHEMOGLOBIN AND [id number] 19:18:24 Test Item Value Reference Range Interpretation Comments HEMOGLOBIN (BEAKER) (test code = 8.9 GM/DL 12.0-15.5 L 410) HEMATOCRIT (BEAKER) (test code = 28.2 % 36.0-46.0 L 411) [id number] 00:42:32 Test Item Value Reference Range Interpretation Comments MAGNESIUM (BEAKER) (test code = 1.5 mg/dL 1.5-3.0 627) Fruit Coordinator ID - [id number]/RT-PCR (Asymptomatic ONLY)2021-11-03 23:27:56 Test Item Value Reference Interpretation Comments Range SARS-COV2/RT-PCR Negative Negative The SARS-Co V-2 (test code = target nucleic 53088-7) acids are not detected in thi s specimen. Negat emilia results do not preclude SARS-C oV-2 infection and should not be u sed as the sole bas is for patient management decisions. Nega tive results must be combined with clinical observations, patient history , and epidemiolog ical information. A false negative result may occu r if a specimen is improperly collected, transported or handled. This S ARS CoV-2 test is a rapid, real-siddharth e RT-PCR test intended for th e qualitative detection of nucleic acid fr om SARS-CoV-2 in a nasopharyngeal swab specimen collec raymon from individual s suspected of COVID-19 by the ir healthcare provider. THEE (test code = This test has been THEE) authorized by FDA under an EUA for use by authorized laboratories. This test is only authorized for the duration of the declaration that circumstances exist justifying the authorization of emergency use of in vitro diagnostic tests for detection and/or diagnosis of COVID-19 under Section 564(b)(1) of the Federal Food, Drug and Cosmetic Act, 21 U.S.C. 360bbb-3(b)(1), unless the authorization is terminated or revoked sooner. Fact Sheet for Healthcare Providers: https://www.[employer]/Documents/Xp ert%20Xpress%20SAR S%20CoV-2/Fact%20S heets/3023802%20S ARS-COV-2%20HEALTH CARE%20PROVIDERS%2 0FACT%20SHEET.pdf Fact Sheet for Healthcare Patients: https://www.[employer]/Documents/Xp ert%20Xpress%20SAR S%20CoV-2/Fact%20S heets/3023801%20S ARS-COV-2%20PATIEN T%20FACT%20SHEET.p df Lab Interpretation Normal (test code = 02330-1) [facility]2021-11-03 23:27:56 Test Item Value Reference Range Interpretation Comments SARS-COV2/RT-PCR Negative Negative The SARS-Co V-2 target (test code = nucleic acids a re not 6646827) detected in thi s specimen. Negative result s do not preclude SARS-C oV-2 infection and s hould not be used as the guanako e basis for patient managem ent decisions. Nega tive results must be combine d with clinical observ ations, patient history , and epidemiological information. A false negativ e result may occur if a spec imen is improperly jacqueline ected, transported or handled. This SARS CoV-2 test is a rapid, real-time RT-PC R test intended for th e qualitative detection of nu cleic acid from SARS-CoV-2 in a nasopharyngeal swab specimen collected from individuals suspected of CO VID-19 by their healthcar e provider. This test has been authorized by FDA under an EUA for use by authorized laboratories. This test is only authorized for the duration of the declaration that circumstances exist justifying the authorization of emergency use of in vitro diagnostic tests for detection and/or diagnosis of COVID-19 under Section 564(b)(1) of the Federal Food, Drug and Cosmetic Act, 21 U.S.C. 360bbb-3(b)(1), unless the authorization is terminated or revoked sooner. Fact Sheet for Healthcare Providers: https://www.[employer]/Documents/Xpert%20Xpress%20SARS%20CoV-2/Fact%20Sheets/3023802%83ZRHB-WOP-2%20 HEALTHCARE%20PROVIDERS%20FACT%20SHEET.pdf Fact Sheet for Healthcare Patients: https://www.[employer]/Documents/Xpert%20Xp ress%20SARS%20CoV-2/Fact%20Sheets/3023801%80OQOC-DJW-4%20PATIENT%20FACT%20SHEET .[id number] 23:15:52 Test Item Value Reference Range Interpretation Comments FERRITIN (BEAKER) (test code = 11.00 ng/mL 10.00-291.00 361) Fruit Coordinator ID - [id number]/[id number] T4 IF [id number] 23:14:36 Test Item Value Reference Range Interpretation Comments THYROID STIMULATING HORMONE 1.730 uIU/mL 0.350-5.500 (BEAKER) (test code = 772) Fruit Coordinator ID - [id number] METABOLIC [id number] 22:58:50 Test Item Value Reference Range Interpretation Comments TOTAL PROTEIN 7.3 gm/dL 6.0-8.5 (BEAKER) (test code = 770) ALBUMIN (BEAKER) 3.8 g/dL 3.5-5.0 (test code = 1145) ALKALINE 37 U/L 30-115 PHOSPHATASE (BEAKER) (test code = 346) BILIRUBIN TOTAL 0.3 mg/dL 0.1-1.2 (BEAKER) (test code = 377) SODIUM (BEAKER) 138 meq/L 135-148 (test code = 381) POTASSIUM (BEAKER) 3.2 meq/L 3.6-5.5 L (test code = 379) CHLORIDE (BEAKER) 105 meq/L 98-106 (test code = 382) CO2 (BEAKER) (test 23 meq/L 20-29 code = 355) BLOOD UREA 6 mg/dL 10-26 L NITROGEN (BEAKER) (test code = 354) CREATININE 0.73 mg/dL 0.50-1.20 (BEAKER) (test code = 358) GLUCOSE RANDOM 115 mg/dL 70-110 H (BEAKER) (test code = 652) CALCIUM (BEAKER) 8.9 mg/dL 8.5-10.5 (test code = 697) AST (SGOT) 30 U/L 5-40 (BEAKER) (test code = 353) ALT (SGPT) 15 U/L 5-50 (BEAKER) (test code = 347) EGFR (BEAKER) 103 Interpretatio n of eGFR (test code = 1092) mL/min/1.[address] age Description sq m Result G1 Geraldine l or high >=90 G2 Mildly decreased 60-89 G3a Mildl y to moderately 45-5 9 G3b Moderately to s everely 30-44 G4 Severl y decreased 15-29 G5 Kidney failure <15Reported eGF R is based on the CKD-EPI 2020 equation that d oes not use a race coefficientEsti mated GFR is not as accur ate as Creatinine María Elena ehsan in predicting glom erular filtration rate . Estimated GFR is not appl icable for dialysis patien ts Fruit Coordinator ID - [id number] ID - [id number] ID - [id number] ID - [id number] ID - [id number] ID - [id number] ID - [id number] ID - [id number] ID - [id number] ID - [id number] ID - [id number] ID - [id number] ID - [id number] ID - [id number] ID - [id number] ID - [id number], TIBC, % SAT. (WITHOUT FERRITIN)2021-11-03 22:58:04 Test Item Value Reference Range Interpretation Comments IRON (BEAKER) (test code = 547) 56.0 ug/dL 45.0-170.0 TOTAL IRON BINDING CAPACITY 503 ug/dL 250-550 (BEAKER) (test code = 769) IRON % SATURATION (2) (BEAKER) 11 % 20-55 L (test code = 2590) Fruit Coordinator ID - [id number] ID - [id number] 22:53:33 Test Item Value Reference Range Interpretation Comments TRIGLYCERIDES (BEAKER) (test code = 67 mg/dL 540) CHOLESTEROL (BEAKER) (test code = 189 mg/dL 631) HDL CHOLESTEROL (BEAKER) (test code 80 mg/dL = 976) LDL CHOLESTEROL CALCULATED (BEAKER) 96 mg/dL (test code = 633) Triglyceride Reference Range: Low Risk <150 Borderline 150-199 High Risk 200- 499 Very High Risk >=500Cholesterol Reference Range: Low Risk <200 Borderline 200-239 High Risk >240HDL Cholesterol Reference Range: Low Risk >=60 High Risk <40LDL Cholesterol Reference Range: Optimal <100 Near Optimal 100-129 Borderline 130-159 High 160-189 Very High >=190 Fruit Coordinator ID - [id number] ID - [id number] ID - [id number] ID - [id number] ID - [id number] ID - [id number] TIME/INR 2021-11-03 22:48:27 Test Item Value Reference Range Interpretation Comments PROTIME (BEAKER) 10.6 seconds 9.3-12.0 Final Infor mation (test code = 759) (Auto Outp ut) INR (BEAKER) (test 0.96 See_Comment Final Inf ormation code = 370) (Auto Output) [Automated mess age] The system Man[employer] generated this result transmitted ref erence range: <=5.90. The reference range was not used to int erpret this result as normal/abnormal . RECOMMENDED COUMADIN/WARFARIN INR THERAPY RANGESSTANDARD DOSE: 2.0 - 3.0 Includes: PROPHYLAXIS for venous thrombosis, systemic embolization; TREATMENT for venous thrombosis and/or pulmonary embolus.HIGH RISK: Target INR is 2.5-3.5 for patients with mechanical heart valves.HEMOGLOBIN [id number] 22:43:11 Test Item Value Reference Range Interpretation Comments HEMOGLOBIN A1C (BEAKER) (test code = 4.4 % 4.3-6.1 368) Fruit Coordinator ID - [id number] W/PLT COUNT & AUTO [id number] 22:38:27 Test Item Value Reference Range Interpretation Comments WHITE BLOOD CELL COUNT (BEAKER) 5.7 K/ L 4.0-10.0 (test code = 775) RED BLOOD CELL COUNT (BEAKER) 3.24 M/ L 4.00-5.00 L (test code = 761) HEMOGLOBIN (BEAKER) (test code = 8.8 GM/DL 12.0-15.5 L 410) HEMATOCRIT (BEAKER) (test code = 27.3 % 36.0-46.0 L 411) MEAN CORPUSCULAR VOLUME (BEAKER) 84.3 fL 82.0-99.0 (test code = 753) MEAN CORPUSCULAR HEMOGLOBIN 27.2 pg 27.0-33.0 (BEAKER) (test code = 751) MEAN CORPUSCULAR HEMOGLOBIN CONC 32.2 GM/DL 32.0-36.0 (BEAKER) (test code = 752) RED CELL DISTRIBUTION WIDTH 17.0 % 12.0-15.0 H (BEAKER) (test code = 412) PLATELET COUNT (BEAKER) (test 206 K/CU MM 150-430 code = 756) MEAN PLATELET VOLUME (BEAKER) 9.7 fL 6.0-11.5 (test code = 754) NUCLEATED RED BLOOD CELLS 0 /100 WBC 0-0 (BEAKER) (test code = 413) NEUTROPHILS RELATIVE PERCENT 59 % (BEAKER) (test code = 429) LYMPHOCYTES RELATIVE PERCENT 28 % (BEAKER) (test code = 430) MONOCYTES RELATIVE PERCENT 10 % (BEAKER) (test code = 431) EOSINOPHILS RELATIVE PERCENT 2 % (BEAKER) (test code = 432) BASOPHILS RELATIVE PERCENT 1 % (BEAKER) (test code = 437) NEUTROPHILS ABSOLUTE COUNT 3.35 K/ L 1.80-8.00 (BEAKER) (test code = 670) LYMPHOCYTES ABSOLUTE COUNT 1.60 K/ L 1.48-4.50 (BEAKER) (test code = 414) MONOCYTES ABSOLUTE COUNT (BEAKER) 0.56 K/ L 0.00-1.30 (test code = 415) EOSINOPHILS ABSOLUTE COUNT 0.12 K/ L 0.00-0.50 (BEAKER) (test code = 416) BASOPHILS ABSOLUTE COUNT (BEAKER) 0.06 K/ L 0.00-0.20 (test code = 417) IMMATURE GRANULOCYTES-RELATIVE 0 % 0-0 PERCENT (BEAKER) (test code = 2801) Rapid drug screen, [id number] 22:30:04 Test Item Value Reference Range Interpretation Comments Barbiturate Screen Negative Negative (test code = 44248-5) Benzodiazepine Screen Positive Negative A (test code = 40497-1) Cocaine (Metab.) Negative Negative Screen (test code = 3397-7) Methadone Screen (test Negative Negative code = 40300-7) Opiate Screen (test Negative Negative code = 86244-4) Cannabinoid Screen Negative Negative (test code = 42007-5) Amph/Methamph Screen Negative Negative (test code = 91767-8) Phencyclidine Screen Negative Negative (test code = 67325-8) pH, UA (test code = 6.0 5.0-8.0 5803-2) THEE (test code = THEE) DRUG CUTOFF CONC.Cocaine 300 ng/mL Cannabinoid 50 ng/mLBenzodiazepine 200 ng/mLBarbiturate 200 ng/mLPhencyclidine 25 ng/mLOpiate 300 ng/mLMethadone 300 ng/mLAmphetamine/ 1000 ng/mL Methamphetamine This assay provides an unconfirmed qualitative test result for the clinical management of patients in emergency situations. Chain of custody not maintained. Some kchy-odz-qngumot medications, as well as adulterants, may cause inaccurate results. Clinical correlation should be applied. A more comprehensive drug screen or confirmation of a detected drug may be performed upon request.Fruit Coordinator ID - [id number] ID - [id number] ID - [id number] ID - [id number] ID - [id number] ID - [id number] ID - [id number] ID - [id number] Lab Interpretation Abnormal (test code = 78663-7) [facility] [id number] 22:30:04 Test Item Value Reference Range Interpretation Comments BARBITURATE URINE (BEAKER) (test Negative Negative code = 725) BENZODIAZEPINE SCREEN URINE (BEAKER) Positive Negative A (test code = 726) COCAINE (METAB.) SCREEN (BEAKER) Negative Negative (test code = 1164) METHADONE SCREEN (BEAKER) (test code Negative Negative = 1436) OPIATE SCREEN URINE (BEAKER) (test Negative Negative code = 734) CANNABINOID SCREEN URINE (BEAKER) Negative Negative (test code = 727) AMPH/METHAMPH SCREEN (BEAKER) (test Negative Negative code = 1438) PHENCYCLIDINE SCREEN URINE (BEAKER) Negative Negative (test code = 608) PH UA (BEAKER) (test code = 467) 6.0 5.0-8.0 DRUG CUTOFF CONC.Cocaine 300 ng/mL Cannabinoid 50 ng/mLBenzodiazepine 200 ng/mLBarbiturate 200 ng/mLPhencyclidine 25 ng/mLOpiate 300 ng/mLMethadone 300 ng/mLAmphetamine/ 1000 ng/mL MethamphetamineThisassay provides an unconfirmed qualitative test result for the clinical management of patients in emergency situations. Chain of custody not maintained. Some jsgl-dwe-vzfojwe medications, as well as adulterants, may cause inaccurate results. Clinical correlation should be applied. A more comprehensive drug screen or confirmation of a detected drug may be performed upon request.Fruit Coordinator ID - [id number] ID - [id number] ID - [id number] ID - [id number] ID - [id number] ID - [id number] ID - [id number] ID - [id number] Screen, [id number] 22:18:21 Test Item Value Reference Range Interpretation Comments Preg Test, Ur (test code = 2112-1) Negative Negative Lab Interpretation (test code = Normal 58537-3) [facility], [id number] 22:18:21 Test Item Value Reference Range Interpretation Comments TEST URINE (BEAKER) (test Negative Negative code = 583)
[2021-12-15] MEDS ORDERED: METOCLOPRAMIDE 10 MG/2mL INJ ONE (19:59)
[2021-12-15] MEDS ORDERED: DIPHENHYDRAMINE 50 MG/ML VIAL ONE (19:59)
[2021-12-15] MEDS ORDERED: NA CHLORIDE 0.9% 1,000 ML ONE (20:00)
[2021-12-15] MEDS ORDERED: dexAMETHasone 10 MG/ML VIAL ONE (20:00)
[2021-12-15] MEDS ORDERED: KETOROLAC 30 MG/ML INJ ONE (20:01)
--- NOTE | 2021-12-15 20:19 | RAD REPORT ---
EXAM DESCRIPTION: CT - Head Brain Wo Cont - 12/15/2021 8:10 pm CLINICAL HISTORY: Headache, tension-type Headache, hypertension COMPARISON: No comparisons TECHNIQUE: All CT scans are performed using dose optimization technique as appropriate and may inclu de automated exposure control or mA/KV adjustment according to patient size. FINDINGS: No intracranial hemorrhage, hydrocephalus or extra-axial fluid collection.No areas of brai n edema or evidence of midline shift. The paranasal sinuses and mastoids are clear. The calvarium is intact. IMPRESSION: No acute intracranial abnormality.
[2021-12-15 20:37] LABS: Absolute Lymphocytes (CBC) 1.7 K/uL (0.7-4.9); Hematocrit 33.8 % (36.0-45.0); Lymphocytes % 37.8 % (15.3-44.8); MCV 97.9 fL (80-100); MPV 7.9 fL (7.6-11.3); RBC Red Blood Cell Count 3.45 M/uL (3.86-4.86)
[2021-12-15 20:38] LABS: Anisocytosis 3+; Blood Morphology Comment NOTED (NOT SEEN); Platelet Estimate ADEQ; White Blood Cell Scan OK (OK)
[2021-12-15 20:51] LABS: Potassium 3.4 mmol/L (3.5-5.1)
--- NOTE | 2021-12-15 21:42 | ER ---
Nurse's Notes [facility] Name: Lamar Salvador Age: 46 yrs Sex: Female : 1975 Arrival Date: 12/15/2021 Time: 18:54 Bed 16 Private MD: Mohini Ruiz H Diagnosis: Elevated blood-pressure reading, without diagnosis of hypertension;Headache Presentation: 12/15 19:01 Chief complaint: Patient states: High blood pressure, headache, SOB on and off X 3 ld1 days. Coronavirus screen: At this time, the client does not indicate any symptoms associated with coronavirus-19. Ebola Screen: No symptoms or risks identified at this time. Initial Sepsis Screen: Does the patient meet any 2 criteria? No. Patient's initial sepsis screen is negative. Does the patient have a suspected source of infection? No. Patient's initial sepsis screen is negative. Risk Assessment: Do you want to hurt yourself or someone else? Patient reports no desire to harm self or others. Onset of symptoms was December 15, 2021. 19:01 Method Of Arrival: Ambulatory ld1 19:01 Acuity: CAL 3 ld1 Triage Assessment: 19:02 General: Appears in no apparent distress. comfortable, Behavior is anxious, crying, ld1 fussy. Pain: Denies pain. EENT: No signs and/or symptoms were reported regarding the EENT system. Neuro: Level of Consciousness is awake, alert, obeys commands, Oriented to person, place, time, situation. Cardiovascular: Capillary refill < 3 seconds Patient's skin is warm and dry. Rhythm is sinus tachycardia. Respiratory: Airway is patent Respiratory effort is even, unlabored. GI: Abdomen is flat, non-distended. : No signs and/or symptoms were reported regarding the genitourinary system. Derm: No signs and/or symptoms reported regarding the dermatologic system. Musculoskeletal: No signs and/or symptoms reported regarding the musculoskeletal system. BIOLOGY INTERN: 19:02 LMP 12/15/2021 ld1 Historical: - Allergies: 19:02 No Known Allergies; ld1 - Home Meds: 19:02 Ferrous Sulfate Oral [Active]; ld1 - PMHx: 19:02 Anxiety; Anemia; ld1 - PSHx: 19:02 breast augmentation; ld1 - Immunization history:: Adult Immunizations up to date, Client reports having NOT received the Covid vaccine. - Social history:: Smoking status: Patient reports the use of cigarette tobacco products, denies chronic smoking, but will smoke occasionally, Patient uses alcohol, occasionally. Screenin:36 Abuse screen: Denies threats or abuse. Denies injuries from another. Nutritional kb3 screening: No deficits noted. Tuberculosis screening: No symptoms or risk factors identified. Fall Risk None identified. Assessment: 19:15 General: Appears distressed, Behavior is cooperative, anxious, crying, Received care of kb3 pt from [facility]. Pt is AAO x4, crying, states intermittently elevated BP and headache x3 days. Reports she began experiencing elevated BP when she was transferred to [facility] last month with a GI bleed. Pt reports feeling nauseous 3 days ago and she began checking her BP frequently with SBP readings 107-212. Pt is anxious and crying. 19:15 Neuro: Level of Consciousness is awake, alert, obeys commands, Oriented to person, kb3 place, time, situation, Block Inspector are equal bilaterally Moves all extremities. Gait is steady, Speech is normal, Facial symmetry appears normal, Pupils are PERRLA, Pupil Size: 3 Intact Reports headache in entire. GI: Reports nausea. 21:00 General: Pt ambulatory to the restroom without distress. kb3 Vital Signs: 19:01 BP 205 / 130; Pulse 120; Resp 18; Temp 98.3(TE); Pulse Ox 99% ; Weight 66.22 kg; Height ld1 5 ft. 9 in. (175.26 cm); Pain 0/10; 19:36 BP 174 / 106; Pulse 80; Resp 20; Pulse Ox 99% ; Weight 78.93 kg; Height 5 ft. 6 in. kb3 (167.64 cm); Pain 10/10; 20:38 BP 162 / 113; Pulse 77; Resp 20; Pulse Ox 100% ; kb3 20:57 BP 173 / 112; Pulse 77; Resp 20; Pulse Ox 100% ; kb3 21:24 BP 156 / 115; kb3 19:36 Body Mass Index 28.08 (78.93 kg, 167.64 cm) kb3 ED Course: 18:54 Patient arrived in ED. rg4 18:54 Mohini Ruiz DO is Private Physician. rg4 19:02 Triage completed. ld1 19:02 Arm band placed on right wrist. ld1 19:10 Geoff Weber DO is Attending Physician. ms3 19:24 Ronda Arrington, RN is Primary Nurse. kb3 19:36 Patient has correct armband on for positive identification. Bed in low position. Call kb3 light in reach. Side rails up X 1. Client placed on continuous cardiac and pulse oximetry monitoring. NIBP monitoring applied. quality assurance monitor on. Warm blanket given. 19:36 No provider procedures requiring assistance completed. kb3 19:40 Inserted saline lock: 20 gauge in right antecubital area, using aseptic technique. kb3 Blood collected. 20:12 CT Head Brain wo Cont In Process Unspecified. EDMS 21:41 Mohini Ruiz DO is Referral Physician. ms3 22:05 IV discontinued, intact, bleeding controlled, No redness/swelling at site. kb3 Administered Medications: 19:50 Drug: NS 0.9% 1000 ml Route: IV; Rate: 1000 ml; Site: right antecubital; kb3 22:00 Follow up: Response: No adverse reaction; IV Status: Completed infusion; IV Intake: kb3 1000ml 19:51 Drug: Dexamethasone 10 mg Route: IVP; Site: right antecubital; kb3 20:44 Follow up: Response: No adverse reaction; Pain is decreased kb3 19:55 Drug: Benadryl (diphenhydrAMINE) 25 mg Route: IVP; Site: right antecubital; kb3 20:44 Follow up: Response: No adverse reaction; Pain is decreased kb3 19:58 Drug: Reglan (metoCLOPramide) 10 mg Route: IVP; Site: right antecubital; kb3 20:45 Follow up: Response: No adverse reaction; Pain is decreased kb3 20:00 Drug: Ketorolac 10 mg Route: IVP; Site: right antecubital; kb3 20:44 Follow up: Response: No adverse reaction; Pain is decreased kb3 Medication: 19:36 VIS not applicable for this client. kb3 Intake: 22:00 IV: 1000ml; Total: 1000ml. kb3 Outcome: 21:42 Discharge ordered by . ms3 22:10 Discharged to home via wheelchair. kb3 22:10 Condition: stable 22:10 Discharge instructions given to patient, Instructed on discharge instructions, follow up and referral plans. medication usage, Demonstrated understanding of instructions, follow-up care, medications, Prescriptions given X 1. 22:11 Patient left the ED. kb3 Signatures: Dispatcher [employer] Loida Calhoun rg4 Geoff Weber DO DO ms3 Mirela Oliveira, RN RN ld1 Ronda Arrington RN RN kb3
--- NOTE | 2021-12-15 21:42 | EDPHYS ---
Physician Documentation [facility] Name: Lamar Salvador Age: 46 yrs Sex: Female : 1975 Arrival Date: 12/15/2021 Time: 18:54 Bed 16 Private MD: Mohini Ruiz H ED Physician Geoff Weber HPI: 12/15 21:42 This 46 yrs old Female presents to ER via Ambulatory with complaints of Palpitations, ms3 High Blood Pressure, Blurred Vision. 21:42 46-year-old female with past medical history of anemia and anxiety presents for ms3 headache that began on Saturday. Patient states she had nausea and vomiting on Saturday. Patient states the pain is a 10/10 and a squeezing sensation located generally throughout her head. Patient states she has had multiple stressors recently. Patient denies alleviating or inciting factors.. 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 - Social history:: Smoking status: Patient reports the use of cigarette tobacco products, denies chronic smoking, but will smoke occasionally, Patient uses alcohol, occasionally. ROS: 21:42 Constitutional: Negative for fever, and chills. ENT: Negative for injury, pain, and ms3 discharge, Neck: Negative for injury, pain, and swelling, Cardiovascular: Negative for chest pain, and palpitations. Respiratory: Negative for shortness of breath, cough, wheezing, and pleuritic chest pain, Abdomen/GI: Negative for abdominal pain, nausea, vomiting, diarrhea, and constipation, MS/Extremity: Negative for injury and deformity, Skin: Negative for injury, rash, and discoloration. 21:42 Neuro: Positive for headache. 21:42 All other systems are negative. Exam: 21:42 Constitutional: This is a well developed, well nourished patient who is awake, alert, ms3 and in no acute distress. Head/Face: Normocephalic, atraumatic. Neck: Trachea midline, no cervical lymphadenopathy. Supple, full range of motion without nuchal rigidity, or vertebral point tenderness. No Meningismus. Chest/axilla: Normal chest wall appearance and motion. Nontender with no deformity. Cardiovascular: Regular rate and rhythm with a normal S1 and S2. No gallops, murmurs, or rubs. Normal PMI, no JVD. No pulse deficits. Respiratory: Lungs have equal breath sounds bilaterally, clear to auscultation and percussion. No rales, rhonchi or wheezes noted. No increased work of breathing, no retractions or nasal flaring. Abdomen/GI: Soft, non-tender, with normal bowel sounds. No distension or tympany. No guarding or rebound. No evidence of tenderness throughout. Skin: Warm, dry with normal turgor. Normal color with no rashes, no lesions, and no evidence of cellulitis. MS/ Extremity: Pulses equal, no cyanosis. Neurovascular intact. Full, normal range of motion. Neuro: Awake and alert, GCS 15, oriented to person, place, time, and situation. Cranial nerves II-XII grossly intact. Motor strength 5/5 in all extremities. Sensory grossly intact. Cerebellar exam normal. Normal gait. Psych: Awake, alert, with orientation to person, place and time. Behavior, mood, and affect are within normal limits. Vital Signs: 19:01 BP 205 / 130; Pulse 120; Resp 18; Temp 98.3(TE); Pulse Ox 99% ; Weight 66.22 kg; Height ld1 5 ft. 9 in. (175.26 cm); Pain 0/10; 19:36 BP 174 / 106; Pulse 80; Resp 20; Pulse Ox 99% ; Weight 78.93 kg; Height 5 ft. 6 in. kb3 (167.64 cm); Pain 10/10; 20:38 BP 162 / 113; Pulse 77; Resp 20; Pulse Ox 100% ; kb3 20:57 BP 173 / 112; Pulse 77; Resp 20; Pulse Ox 100% ; kb3 21:24 BP 156 / 115; kb3 19:36 Body Mass Index 28.08 (78.93 kg, 167.64 cm) kb3 MDM: 19:38 Patient medically screened. ms3 21:42 Data reviewed: vital signs, nurses notes, lab test result(s), radiologic studies, and ms3 as a result, I will discharge patient. Counseling: I had a detailed discussion with the patient and/or guardian regarding: the historical points, exam findings, and any diagnostic results supporting the discharge/admit diagnosis, lab results, radiology results, the need for outpatient follow up, to return to the emergency department if symptoms worsen or persist or if there are any questions or concerns that arise at home. ED course: Patient states her headache has resolved, patient is alert and oriented x4, in no apparent distress, nontoxic, ambulatory in emergency department. Patient follow-up with her primary care physician as discussed. All questions were answered. Return precautions discussed include worsening symptoms, or any other concerns. Patient given prescription for hydrochlorothiazide.. 12/15 19:46 Order name: CBC with Diff; Complete Time: 21:03 ms3 12/15 19:46 Order name: BMP; Complete Time: 21:03 ms3 12/15 19:58 Order name: CT Head Brain wo Cont; Complete Time: 21:03 ms3 12/15 20:38 Order name: CBC Smear Scan; Complete Time: 21:03 EDMS Administered Medications: 19:50 Drug: NS 0.9% 1000 ml Route: IV; Rate: 1000 ml; Site: right antecubital; kb3 22:00 Follow up: Response: No adverse reaction; IV Status: Completed infusion; IV Intake: kb3 1000ml 19:51 Drug: Dexamethasone 10 mg Route: IVP; Site: right antecubital; kb3 20:44 Follow up: Response: No adverse reaction; Pain is decreased kb3 19:55 Drug: Benadryl (diphenhydrAMINE) 25 mg Route: IVP; Site: right antecubital; kb3 20:44 Follow up: Response: No adverse reaction; Pain is decreased kb3 19:58 Drug: Reglan (metoCLOPramide) 10 mg Route: IVP; Site: right antecubital; kb3 20:45 Follow up: Response: No adverse reaction; Pain is decreased kb3 20:00 Drug: Ketorolac 10 mg Route: IVP; Site: right antecubital; kb3 20:44 Follow up: Response: No adverse reaction; Pain is decreased kb3 Disposition Summary: 12/15/21 21:42 Discharge Ordered Location: Home ms3 Condition: Stable ms3 Diagnosis - Elevated blood-pressure reading, without diagnosis of hypertension ms3 - Headache ms3 Followup: ms3 - With: Mohini Ruiz DO - When: 2 - 3 days - Reason: Re-evaluation by your physician Discharge Instructions: - Discharge Summary Sheet ms3 - General Headache Without Cause ms3 - Hypertension, Adult ms3 Forms: - Medication Reconciliation Form ms3 - Thank You Letter ms3 - Antibiotic Education ms3 - Prescription Opioid Use ms3 Prescriptions: - hydrochlorothiazide 12.5 mg Oral tablet - take 1 tablet by ORAL route once daily; 15 tablet; Refills: 0, Product ms3 Selection Permitted Signatures: Dispatcher [employer] EDMS Geoff Weber DO DO ms3 Mirela Oliveira RN RN ld1 Ronda Arrington RN RN kb3
[2021-12-17 13:20] VITALS: TEMP 98.3
[2021-12-17 13:25] VITALS: O2SAT 100
[2021-12-17 13:31] VITALS: BP 156/115
== END 2021-12-15 22:11 | disposition home or self-care (01) ==
LOC: ER 18:53
DX: R03.0 Elevated blood-pressure reading, without diagnosis of hypertension (principal); R51.9 Headache, unspecified; Z98.82 Breast implant status
CPT/HCPCS: 36415; 70450; 80048; 85025; 96361; 96374; 96375; 99284; J1100; J1200; J2765; J7030

== ENCOUNTER 2023-06-28 10:34 | Emergency (ER) | payer OTHER, SELFPAY ==
[2023-06-28] MEDS ORDERED: METHYLPREDNISOLONE 125 MG INJ ONE (10:39)
[2023-06-28] MEDS ORDERED: DIPHENHYDRAMINE 50 MG/ML VIAL ONE (10:39)
[2023-06-28] MEDS ORDERED: EPINEPHRINE 1 MG/ML VIAL ONE (10:42)
[2023-06-28] MEDS ORDERED: FAMOTIDINE 20 MG/2 ML VIAL IV ONE (10:43)
[2023-06-28] MEDS ORDERED: LEVALBUTEROL 1.25 MG/3 ML NEB ONE (14:03)
--- NOTE | 2023-06-28 15:15 | ER ---
Nurse's Notes [facility] Name: Lamar Salvador Age: 48 yrs Sex: Female : 1975 Arrival Date: 06/28/2023 Time: 10:34 Bed 6 Private MD: Diagnosis: Anaphylactic reaction, unspecified Presentation: 06/27 10:40 Chief complaint: Patient states: Rash with itching to body, cough with SOB, some ll1 nausea. 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 Coronavirus screen: Client denies travel out of the [place] in the last 14 days. At this time, the client does not indicate any symptoms associated with coronavirus-19. Ebola Screen: Patient denies travel to an Ebola-affected area in the 21 days before illness onset. Initial Sepsis Screen: Does the patient meet any 2 criteria? RR > 20 per min. HR > 90 bpm. No. Patient's initial sepsis screen is negative. Does the patient have a suspected source of infection? No. Patient's initial sepsis screen is negative. Risk Assessment: Do you want to hurt yourself or someone else? Patient reports no desire to harm self or others. Onset of symptoms was June 28, 2023. 10:40 Method Of Arrival: Ambulatory ll1 10:40 Acuity: CAL 2 ll1 Triage Assessment: 10:41 General: Appears distressed, uncomfortable, Behavior is calm, cooperative, appropriate ll1 for age, Reports itching. Respiratory: Reports shortness of breath cough that is labored breathing. GI: Reports nausea. 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 - Infectious Disease History:: Denies. - Social history:: Smoking status: Patient denies any tobacco usage or history of. - Family history:: not pertinent. - Hospitalizations: : No recent hospitalization is reported. Screenin:52 [facility] ED Fall Risk Assessment (Adult) History of falling in the last 3 months, ap3 including since admission No falls in past 3 months (0 pts) Confusion or Disorientation No (0 pts) Intoxicated or Sedated No (0 pts) Impaired Gait No (0 pts) Mobility Assist Device Used No (0 pt) Altered Elimination No (0 pt) Score/Fall Risk Level 0 - 2 = Low Risk Oriented to surroundings, Maintained a safe environment, Educated pt \T\ family on fall prevention, incl call for assistance when getting out of bed, Assessed \T\ reinforced patient's understanding of fall precautions, Provided non-skid footwear, Hourly rounding (assess needs \T\ fall precautionary measures) done, Used ambulatory aids as needed (educated on \T\ assisted with), Used gait belt as appropriate. Abuse screen: Denies threats or abuse. Nutritional screening: No deficits noted. Tuberculosis screening: No symptoms or risk factors identified. Assessment: 10:51 General: Appears distressed, Behavior is cooperative, anxious. Pain: Denies pain. ap3 Neuro: Level of Consciousness is awake, alert, obeys commands, Oriented to person, place, time, situation. Cardiovascular: Patient's skin is warm and dry. Respiratory: Reports shortness of breath at rest Airway is patent Respiratory effort is even, labored, Respiratory pattern is tachypnea. Vital Signs: 10:40 BP 147 / 113; Pulse 141; Resp 24; Temp 97.4; Pulse Ox 94% on R/A; Weight 70.31 kg; ll1 Height 5 ft. 9 in. ; 10:57 BP 133 / 102; Pulse 110; Resp 16; Pulse Ox 94% on R/A; ap3 11:08 BP 129 / 104; Pulse 106; Resp 17; Pulse Ox 95% ; ap3 11:39 BP 121 / 97; Pulse 97; Resp 16; Pulse Ox 99% ; ko1 12:16 BP 137 / 98; Pulse 96; Resp 14; Pulse Ox 99% ; ko1 13:23 BP 126 / 89; Pulse 93; Resp 18; Pulse Ox 96% ; ap3 14:30 BP 118 / 88; Pulse 92; Resp 16; Pulse Ox 99% ; ko1 10:40 Body Mass Index 22.89 (70.31 kg, 175.26 cm) ll1 ED Course: 10:32 Client placed on continuous cardiac and pulse oximetry monitoring. NIBP monitoring hb applied. site monitor on. Pulse ox on. NIBP on. 10:34 Arm band placed on Patient placed in an exam room, on a stretcher. ll1 10:35 Patient arrived in ED. hb 10:35 Guy Rodriguez MD is Attending Physician. rn 10:40 Inserted saline lock: 18 gauge in right antecubital area, using aseptic technique. hb 10:41 Triage completed. ll1 10:50 Bambi Cloud, RN is Primary Nurse. ap3 10:52 Patient has correct armband on for positive identification. Bed in low position. Call ap3 light in reach. Side rails up X2. 15:27 Provided Education on: medications, follow up . hb 15:27 No provider procedures requiring assistance completed. IV discontinued, intact, hb bleeding controlled, No redness/swelling at site. Pressure dressing applied. Administered Medications: 10:40 Drug: MethylPrednisoLONE IVP 125 mg IVP once Route: IVP; Site: right antecubital; ko1 11:47 Follow up: Response: No adverse reaction ap3 10:40 Drug: diphenhydrAMINE IVP 50 mg IVP once Route: IVP; Site: right antecubital; ko1 11:47 Follow up: Response: No adverse reaction ap3 10:47 Drug: Famotidine IVP 20 mg IVP once; dilute with 10 mL 0.9% NaCl; give over 2 minutes ko1 Route: IVP; Site: right antecubital; 11:48 Follow up: Response: No adverse reaction ap3 12:05 Not Given (patient no longer requires itt): epinephrine 1:10133:1,000 0.3 ml Sub-Q once rn 14:12 Drug: Levalbuterol Inhalation 1.25 mg Inhalation once Route: Inhalation; ap3 Medication: 10:53 VIS not applicable for this client. ap3 Outcome: 15:14 Discharge ordered by . rn 15:27 Discharged to home ambulatory, hb 15:27 Condition: stable 15:27 Discharge instructions given to patient, Instructed on discharge instructions, follow up and referral plans. medication usage, Demonstrated understanding of instructions, follow-up care, medications, Prescriptions given X 1, 15:27 Patient left the ED. hb Signatures: Guy Rodriguez MD MD rn Baxter, Heather, RN RN hb Bambi Cloud RN RN ap3 Sunil Carlton RN RN ll1 Michelle Fang RN RN ko1 Corrections: (The following items were deleted from the chart) 10:58 10:57 BP 133 / 102; Pulse 110bpm; Resp 12bpm; Pulse Ox 94% RA; ap3 ap3 15:27 15:27 IV discontinued, intact, bleeding controlled, No redness/swelling at site. hb hb
--- NOTE | 2023-06-28 15:15 | EDPHYS ---
Physician Documentation [facility] Name: Lamar Salvador Age: 48 yrs Sex: Female : 1975 Arrival Date: 06/28/2023 Time: 10:34 Bed 6 Private MD: ED Physician Guy Rodriguez HPI: 06/27 11:02 This 48 yrs old Female presents to ER via Ambulatory with complaints of Allergic rn Reaction. 11:02 The patient presents with itching, shortness of breath. Onset: The symptoms/episode rn began/occurred just prior to arrival. Possible causes: The patient has no known obvious cause for the symptoms. Severity of symptoms: At their worst the symptoms were moderate in the emergency department the symptoms are unchanged. The patient has not experienced similar symptoms in the past. Patient reports sudden onset of itching, rash, shortness of breath and feeling like trouble getting air in. No known previous allergic reactions. No obvious trigger. 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 Went to urgent care but told the wait was an hour and a half so then came here. 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 - Infectious Disease History:: Denies. - Social history:: Smoking status: Patient denies any tobacco usage or history of. - Family history:: not pertinent. - Hospitalizations: : No recent hospitalization is reported. ROS: 11:02 Constitutional: Negative for fever, chills, and weight loss, Eyes: Negative for injury, rn pain, redness, and discharge, ENT: Subjective lip swelling Neck: Negative for injury, pain, and swelling, Cardiovascular: Positive for heart racing Respiratory: Positive for shortness of breath Abdomen/GI: Negative for abdominal pain, nausea, vomiting, diarrhea, and constipation, Back: Negative for injury and pain, : Negative for injury, bleeding, discharge, and swelling, MS/Extremity: Negative for injury and deformity, Skin: Positive for itching and rash Neuro: Negative for headache, weakness, numbness, tingling, and seizure, Exam: 11:02 Constitutional: This is a well developed, well nourished patient who is awake, alert, rn hyperventilating Head/Face: Normocephalic, atraumatic. Eyes: Blepharospasm present ENT: No stridor noted. No notable lip swelling or asymmetry. Cardiovascular: Tachycardic, regular. No pulse deficits. Respiratory: Hyperventilating with faint expiratory wheezing noted. No retractions. Skin: Diffuse urticaria noted bilateral upper extremities MS/ Extremity: Pulses equal, no cyanosis. Neurovascular intact. Full, normal range of motion. Equal circumference. Neuro: Awake and alert, GCS 15, oriented to person, place, time, and situation. Cranial nerves II-XII grossly intact. Motor strength 5/5 in all extremities. Sensory grossly intact. Cerebellar exam normal. Normal gait. Vital Signs: 10:40 BP 147 / 113; Pulse 141; Resp 24; Temp 97.4; Pulse Ox 94% on R/A; Weight 70.31 kg; ll1 Height 5 ft. 9 in. ; 10:57 BP 133 / 102; Pulse 110; Resp 16; Pulse Ox 94% on R/A; ap3 11:08 BP 129 / 104; Pulse 106; Resp 17; Pulse Ox 95% ; ap3 11:39 BP 121 / 97; Pulse 97; Resp 16; Pulse Ox 99% ; ko1 12:16 BP 137 / 98; Pulse 96; Resp 14; Pulse Ox 99% ; ko1 13:23 BP 126 / 89; Pulse 93; Resp 18; Pulse Ox 96% ; ap3 14:30 BP 118 / 88; Pulse 92; Resp 16; Pulse Ox 99% ; ko1 10:40 Body Mass Index 22.89 (70.31 kg, 175.26 cm) ll1 MDM: 10:35 Patient medically screened. rn 11:17 ED course: Patient markedly improved. Will hold epinephrine for now as patient's rn breathing and vitals have improved.. 12:05 ED course: Patient continues to improve even more. No oxygen requirement. Wheezing has rn resolved. Rash and itching have also resolved with treatment. No need at this point to give epinephrine.. 12:05 I considered the following discharge prescriptions or medication management in the rn emergency department Considered epinephrine administration but at presentation patient was extremely hypertensive and tachycardic to 130s, my concern was worsening of vital signs and patient already very anxious person reporting palpitations. Patient improved without epinephrine will cancel order.. 15:12 Differential diagnosis: anaphylaxis, angioedema, Hereditary Angioedema Mastocystosis rn urticaria, Acute allergic reaction. Data reviewed: vital signs, nurses notes, and as a result, I will discharge patient. Counseling: I had a detailed discussion with the patient and/or guardian regarding the historical points, exam findings, and any diagnostic results supporting the discharge/admit diagnosis, the need for outpatient follow up, to return to the emergency department if symptoms worsen or persist or if there are any questions or concerns that arise at home. Response to treatment: the patient's symptoms have markedly improved after treatment, and as a result, I will discharge patient. Special discussion: I discussed with the patient/guardian in detail that at this point there is no indication for admission to the hospital. It is understood, however, that if the symptoms persist or worsen the patient needs to return immediately for re-evaluation. ED course: Patient ambulatory, reports breathing normally now. Will discharge home with steroids and return precautions.. 06/27 10:39 Order name: IV Start; Complete Time: 10:40 rn Administered Medications: 10:40 Drug: MethylPrednisoLONE IVP 125 mg IVP once Route: IVP; Site: right antecubital; ko1 11:47 Follow up: Response: No adverse reaction ap3 10:40 Drug: diphenhydrAMINE IVP 50 mg IVP once Route: IVP; Site: right antecubital; ko1 11:47 Follow up: Response: No adverse reaction ap3 10:47 Drug: Famotidine IVP 20 mg IVP once; dilute with 10 mL 0.9% NaCl; give over 2 minutes ko1 Route: IVP; Site: right antecubital; 11:48 Follow up: Response: No adverse reaction ap3 12:05 Not Given (patient no longer requires itt): epinephrine 1:55471:1,000 0.3 ml Sub-Q once rn 14:12 Drug: Levalbuterol Inhalation 1.25 mg Inhalation once Route: Inhalation; ap3 Disposition Summary: 06/28/23 15:14 Discharge Ordered Notes: Location: Home rn Problem: new rn Symptoms: have improved rn Condition: Stable rn Diagnosis - Anaphylactic reaction, unspecified rn Followup: rn - With: Private Physician - When: As needed - Reason: Recheck today's complaints, Re-evaluation by your physician Discharge Instructions: - Discharge Summary Sheet rn - Anaphylactic Reaction, Adult rn Forms: - Medication Reconciliation Form rn - Thank You Letter rn - Antibiotic prn physical therapist - Prescription Opioid Use rn - Patient Portal Instructions rn - Leadership Thank You Letter rn Prescriptions: - Prednisone 20 mg Oral Tablet - take 3 tablets ORAL route once daily for 5 days; 15 tablet; Refills: 0, Product rn Selection Permitted Signatures: Guy Rodriguez MD MD rn Bambi Cloud RN RN ap3 Sunil Carlton RN RN ll1 Michelle Fang RN RN ko1
[2023-06-28 16:08] VITALS: BP 118/88; TEMP 97.4; O2SAT 99
== END 2023-06-28 15:27 | disposition home or self-care (01) ==
LOC: ER 10:34
DX: T78.2XXA Anaphylactic shock, unspecified, initial encounter (principal); R06.02 Shortness of breath; F41.9 Anxiety disorder, unspecified; Z98.82 Breast implant status
CPT/HCPCS: 96375; 96374; 99285; J1200; J7614; J2930; J0171

== ENCOUNTER 2023-07-18 10:02 | Emergency (ER) | payer OTHER ==
[2023-07-18] MEDS ORDERED: NA CHLORIDE 0.9% 500 ML ONE (10:14)
[2023-07-18] MEDS ORDERED: DIPHENHYDRAMINE 50 MG/ML VIAL ONE (10:28)
[2023-07-18 11:08] LABS: Absolute Eosinophils 0.2 K/uL (0-0.5); Absolute Lymphocytes (CBC) 1.5 K/uL (0.7-4.9); Absolute Monocytes 0.3 K/uL (0.1-1.3); Absolute Neutrophil 2.4 K/uL (1.8-8.0); Basophils % 0.7 % (0-1.3); Eosinophils % 4.3 % (0-4.4); Hematocrit 39.2 % (36.0-45.0); Hemoglobin 13.1 g/dL (12.0-15.0); Lymphocytes % 33.4 % (15.3-44.8); MCHC 33.3 g/dL (32.0-36.0); MCV 93.2 fL (80-100); Monocytes % 6.8 % (3.3-12.3); Neutrophils % 54.8 % (41.7-73.7); Platelets 238 thou/uL (152-406); RBC Red Blood Cell Count 4.21 M/uL (3.86-4.86); Red Cell Distribution Width 15.3 % (12.1-15.2)
[2023-07-18 11:13] LABS: PT Prothrombin Time 10.5 SECONDS (9.5-12.5); PTT, Activated Partial Thromb 29.5 SECONDS (24.3-36.9); Protime INR 0.95
[2023-07-18 11:29] LABS: Albumin 3.7 g/dL (3.4-5.0); Albumin/Globulin Ratio 0.9 (1.1-1.8); Anion Gap 8.9 mEq/L (5.0-15.0); Bilirubin Direct 0.1 mg/dL (0-0.2); Bilirubin Indirect, Calculated 0.3 mg/dL (0.2-0.8); Bilirubin Total 0.4 mg/dL (0.2-1.0); Globulin 4.3 g/dL (2.3-3.5); Potassium 3.9 mEq/L (3.5-5.1)
[2023-07-18] MEDS ORDERED: LORazepam 2 MG/ML VIAL ONE (11:56)
--- NOTE | 2023-07-18 12:46 | ER ---
Nurse's Notes [facility] Name: Lamar Salvador Age: 48 yrs Sex: Female : 1975 Arrival Date: 07/18/2023 Time: 10:02 Bed 14 Private MD: Diagnosis: Allergic reaction, urticaria Presentation: 07/17 10:02 Chief complaint: EMS states: Allergic reaction, trigger is unknown, had same happened nj1 last week. Given benadryl and solumedrol on route by EMS. Had hives on arms and was itching. Raspy voice, no throat/swallowing problems. 10:02 Coronavirus screen: Vaccine status: Patient reports being unvaccinated. Ebola Screen: nj1 Patient denies travel to an Ebola-affected area in the 21 days before illness onset. Onset: The symptoms/episode began/occurred suddenly, today. Anaphylaxis evaluation, the patient reports or I have noted the following symptoms which indicate a significant risk of anaphylaxis: urticaria. Initial Sepsis Screen: Does the patient meet any 2 criteria? HR > 90 bpm. No. Patient's initial sepsis screen is negative. Does the patient have a suspected source of infection? No. Patient's initial sepsis screen is negative. Risk Assessment: Do you want to hurt yourself or someone else? Patient reports no desire to harm self or others. Onset of symptoms was July 18, 2023. 10:02 Method Of Arrival: EMS: [facility] 10:02 Acuity: CAL 3 nj1 10:26 Care prior to arrival: Medication(s) given: 125mg solumedrol IV and 25mg benadryl IV. nj1 IV initiated. 20 GA, in the left antecubital area. 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 - Infectious Disease History:: Denies. - Social history:: Smoking status: Patient denies any tobacco usage or history of. Screenin:05 [facility] ED Fall Risk Assessment (Adult) History of falling in the last 3 months, nj1 including since admission No falls in past 3 months (0 pts) Confusion or Disorientation No (0 pts) Intoxicated or Sedated No (0 pts) Impaired Gait No (0 pts) Mobility Assist Device Used No (0 pt) Altered Elimination No (0 pt) Score/Fall Risk Level 0 - 2 = Low Risk Oriented to surroundings, Maintained a safe environment, Hourly rounding (assess needs \T\ fall precautionary measures) done. Abuse screen: Denies threats or abuse. Denies injuries from another. Nutritional screening: No deficits noted. Tuberculosis screening: No symptoms or risk factors identified. Assessment: 10:10 General: Appears in no apparent distress. uncomfortable, Behavior is calm, cooperative, nj1 appropriate for age. Pain: Denies pain. Neuro: Level of Consciousness is awake, alert, obeys commands, Oriented to person, place, time, situation. Cardiovascular: Patient's skin is warm and dry. Respiratory: Airway is patent Respiratory effort is even, unlabored, Breath sounds are clear. Derm: redness noted to arms. No hives noted at this time. Denies itching. 10:28 Derm: Rash noted that is macular, itchy, on right arm and left arm. nj1 10:48 Reassessment: Patient appears in no apparent distress at this time. Patient and/or nj1 family updated on plan of care and expected duration. Pain level reassessed. Patient is alert, oriented x 3, equal unlabored respirations, skin warm/dry/pink. Derm: Rash noted that is macular, itchy, on right arm and left arm. 11:30 Reassessment: Patient appears in no apparent distress at this time. Patient and/or nj1 family updated on plan of care and expected duration. Pain level reassessed. Patient is alert, oriented x 3, equal unlabored respirations, skin warm/dry/pink. Derm: Parent/caregiver reports the patient having swelling to melinda hands. 11:30 Derm: Rash noted that is macular, itchy, on right arm and left arm. nj1 13:06 General: Appears uncomfortable, well groomed, well developed, well nourished, Behavior me1 is calm, cooperative, appropriate for age. Pain: Denies pain. Neuro: Level of Consciousness is awake, alert, obeys commands, Oriented to person, place, time, situation, Appropriate for age. Cardiovascular: Capillary refill < 3 seconds Patient's skin is warm and dry. Respiratory: Airway is patent Respiratory effort is even, unlabored, Respiratory pattern is regular, symmetrical. GI: No signs and/or symptoms were reported involving the gastrointestinal system. : No signs and/or symptoms were reported regarding the genitourinary system. EENT: No signs and/or symptoms were reported regarding the EENT system. Derm: Rash noted that is red, on left arm and right arm. Musculoskeletal: No signs and/or symptoms reported regarding the musculoskeletal system. Vital Signs: 10:02 BP 137 / 94; Pulse 99; Resp 18; Temp 97.8(TE); Pulse Ox 100% on R/A; Weight 71.67 kg; nj1 Height 5 ft. 9 in. ; 10:21 Pulse 96; Resp 16; Pulse Ox 100% ; nj1 11:30 BP 133 / 97; Pulse 89; Resp 16; Pulse Ox 96% on R/A; nj1 12:30 BP 125 / 102; Pulse 91; Resp 16; Pulse Ox 97% on R/A; me1 13:08 BP 109 / 94; Pulse 93; Resp 16; Pulse Ox 98% on R/A; me1 10:02 Body Mass Index 23.33 (71.67 kg, 175.26 cm) nj1 ED Course: 10:03 Patient arrived in ED. nj1 10:04 Bree Michel MD is Attending Physician. sp3 10:05 Patient has correct armband on for positive identification. Bed in low position. Call nj1 light in reach. 10:05 Provided Education on: call light, fall precautions. nj1 10:08 Geraldine Michel, RN is Primary Nurse. nj1 10:24 Triage completed. nj1 10:24 Arm band placed on right wrist. nj1 10:28 Notified ED physician of other Macular rash noted to melinda arms. Pt states its itchy. nj1 11:30 Notified ED physician of other patient complaining of hands swelling. nj1 12:05 Report given to Lucía LAGUNAS. nj1 12:56 Lucía Shell, BEBO is Primary Nurse. me1 13:08 No provider procedures requiring assistance completed. Patient did not have IV access me1 during this emergency room visit. intact, bleeding controlled, No redness/swelling at site. Pressure dressing applied. Administered Medications: 10:20 Drug: NS 0.9% IV 1000 ml IV at 75 ml/hr continuous Route: IV; Rate: 75 ml/hr; Site: nj1 left antecubital; 10:29 Drug: diphenhydrAMINE IVP 25 mg IVP once Route: IVP; Site: left antecubital; nj1 10:56 Follow up: Response: No adverse reaction nj1 13:10 Follow up: Response: No adverse reaction; Marked relief of symptoms me1 12:00 Drug: Ativan IVP 1 mg IVP once Route: IVP; Site: left antecubital; nj1 13:09 Follow up: Response: No adverse reaction; Anxiety decreased me1 Medication: 13:09 VIS not applicable for this client. me1 Outcome: 12:45 Discharge ordered by . sp3 13:08 Discharged to home ambulatory, with friend, me1 13:08 Condition: stable 13:08 Discharge instructions given to patient, Instructed on discharge instructions, follow up and referral plans. medication usage, Demonstrated understanding of instructions, follow-up care, medications, Prescriptions given X 2, 13:09 Patient left the ED. me1 Signatures: Bree Michel MD MD sp3 Geraldine Michel RN RN nj1 Lucía Shell RN RN me1 Corrections: (The following items were deleted from the chart) 10:32 10:02 Anaphylaxis evaluation, the patient reports or I have noted the following [facility] symptoms which indicate a significant risk of anaphylaxis: urticaria nj1 10:56 10:50 Reassessment: Patient appears in no apparent distress at this time. Patient nj1 and/or family updated on plan of care and expected duration. Pain level reassessed. Patient is alert, oriented x 3, equal unlabored respirations, skin warm/dry/pink. nj1 10:56 10:50 Derm: Rash noted that is macular, itchy, on right arm and left arm nj1 nj1
--- NOTE | 2023-07-18 12:46 | EDPHYS ---
Physician Documentation [facility] Name: Lamar Salvador Age: 48 yrs Sex: Female : 1975 Arrival Date: 07/18/2023 Time: 10:02 Bed 14 Private MD: ED Physician Bree Michel HPI: 07/17 10:30 This 48 yrs old Female presents to ER via EMS with complaints of Allergic Reaction. sp3 10:30 40-year-old female with history of hypertension, anemia, anxiety and 1 prior allergic sp3 reaction similar to the current presentation who presents to the ED via EMS for chief complaint hives and difficulty breathing and raspy voice secondary to unknown allergen. Patient states that started all of a sudden without any food or other environmental known insult. Symptoms are throat itching and raspy voice coupled with itching diffusely with mild hives. She denies fever, cough, headache, chest pain, shortness of breath, abdominal pain, vomit, diarrhea, syncope, near syncope, or any other signs or symptoms on ROS this time.. 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 - Infectious Disease History:: Denies. - Social history:: Smoking status: Patient denies any tobacco usage or history of. ROS: 10:31 Constitutional: Negative for fever, chills, and weight loss, Eyes: Negative for injury, sp3 pain, redness, and discharge, ENT: Negative for injury, pain, and discharge, Neck: Negative for injury, pain, and swelling, Cardiovascular: Negative for chest pain, palpitations, and edema, Respiratory: Negative for shortness of breath, cough, wheezing, and pleuritic chest pain, Abdomen/GI: Negative for abdominal pain, nausea, vomiting, diarrhea, and constipation, Back: Negative for injury and pain, MS/Extremity: Negative for injury and deformity, Neuro: Negative for headache, weakness, numbness, tingling, and seizure, Psych: Negative for depression, anxiety, suicide ideation, homicidal ideation, and hallucinations, Allergy/Immunology: Negative for hives, rash, and allergies, Endocrine: Negative for neck swelling, polydipsia, polyuria, polyphagia, and marked weight changes, Hematologic/Lymphatic: Negative for swollen nodes, abnormal bleeding, and unusual bruising, 10:31 All other systems are negative, Exam: 10:33 Constitutional: This is a well developed, well nourished patient who is awake, alert, sp3 and in no acute distress. Head/Face: Normocephalic, atraumatic. Eyes: Pupils equal round and reactive to light, extra-ocular motions intact. Lids and lashes normal. Conjunctiva and sclera are non-icteric and not injected. Cornea within normal limits. Periorbital areas with no swelling, redness, or edema. ENT: Nares patent. No nasal discharge, no septal abnormalities noted. External auditory canals are clear. Oropharynx with no redness, swelling, or masses, exudates, or evidence of obstruction, uvula midline. Mucous membranes moist. Neck: Trachea midline, no thyromegaly or masses palpated, and no cervical lymphadenopathy. Supple, full range of motion without nuchal rigidity, or vertebral point tenderness. No Meningismus. Chest/axilla: Normal chest wall appearance and motion. Nontender with no deformity. No lesions are appreciated. Cardiovascular: Regular rate and rhythm with a normal S1 and S2. No gallops, murmurs, or rubs. Normal PMI, no JVD. No pulse deficits. Respiratory: Lungs have equal breath sounds bilaterally, clear to auscultation and percussion. No rales, rhonchi or wheezes noted. No increased work of breathing, no retractions or nasal flaring. Abdomen/GI: Soft, non-tender, with normal bowel sounds. No distension or tympany. No guarding or rebound. No evidence of tenderness throughout. Back: No spinal tenderness. No costovertebral tenderness. Full range of motion. MS/ Extremity: Pulses equal, no cyanosis. Neurovascular intact. Full, normal range of motion. Neuro: Awake and alert, GCS 15, oriented to person, place, time, and situation. Cranial nerves II-XII grossly intact. Motor strength 5/5 in all extremities. Sensory grossly intact. Cerebellar exam normal. Normal gait. Psych: Awake, alert, with orientation to person, place and time. Behavior, mood, and affect are within normal limits. 10:33 Skin: Respite voice noted however no significant airway swelling on examination. Mild hives on the upper extremities medially on the upper arms otherwise no other rash. Patient has pruritus diffusely.. Vital Signs: 10:02 BP 137 / 94; Pulse 99; Resp 18; Temp 97.8(TE); Pulse Ox 100% on R/A; Weight 71.67 kg; nj1 Height 5 ft. 9 in. ; 10:21 Pulse 96; Resp 16; Pulse Ox 100% ; nj1 11:30 BP 133 / 97; Pulse 89; Resp 16; Pulse Ox 96% on R/A; nj1 12:30 BP 125 / 102; Pulse 91; Resp 16; Pulse Ox 97% on R/A; me1 13:08 BP 109 / 94; Pulse 93; Resp 16; Pulse Ox 98% on R/A; me1 10:02 Body Mass Index 23.33 (71.67 kg, 175.26 cm) nj1 MDM: 10:04 Patient medically screened. sp3 10:33 Data reviewed: vital signs, nurses notes, EMS record, lab test result(s), radiologic sp3 studies. ED course: 48-year-old female with allergic reaction of unknown allergen. EMS administered Solu-Medrol 120 mg and Benadryl 25 mg IV prior to arrival while in route. Patient is much improved with her heart rate prehospital being in the 120s now in the 90s. She feels better. However she still having symptoms and we will administer 25 mg more of Benadryl IV and IV fluids with observation while in the ED. 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 12:43 ED course: Patient much improved now and ready for discharge. I will let her go home on sp3 prednisone and EpiPen and follow-up to allergy.. 07/17 10:48 Order name: Basic Metabolic Panel; Complete Time: : sp3 07/17 10:48 Order name: CBC with Diff; Complete Time: : sp3 07/17 10:48 Order name: LFT's; Complete Time: sp3 07/17 10:48 Order name: PT-INR; Complete Time: : sp3 07/17 10:48 Order name: Ptt, Activated; Complete Time: 11:28 sp3 07/17 10:06 Order name: Monitor; Complete Time: 10:08 sp3 07/17 10:06 Order name: Pulse Ox Monitoring; Complete Time: 10:08 sp3 07/17 10:48 Order name: Labs collected and sent; Complete Time: 11:12 sp3 Administered Medications: 10:20 Drug: NS 0.9% IV 1000 ml IV at 75 ml/hr continuous Route: IV; Rate: 75 ml/hr; Site: nj1 left antecubital; 10:29 Drug: diphenhydrAMINE IVP 25 mg IVP once Route: IVP; Site: left antecubital; nj1 10:56 Follow up: Response: No adverse reaction nj1 13:10 Follow up: Response: No adverse reaction; Marked relief of symptoms me1 12:00 Drug: Ativan IVP 1 mg IVP once Route: IVP; Site: left antecubital; nj1 13:09 Follow up: Response: No adverse reaction; Anxiety decreased me1 Disposition Summary: 07/18/23 12:45 Discharge Ordered Notes: Location: Home sp3 Condition: Stable sp3 Diagnosis - Allergic reaction, urticaria sp3 Followup: sp3 - With: Private Physician - When: Upon discharge from the Emergency Department - Reason: Continuance of care Discharge Instructions: - Discharge Summary Sheet sp3 - Hives sp3 Forms: - Medication Reconciliation Form sp3 - Antibiotic Education sp3 - Prescription Opioid Use sp3 - Patient Portal Instructions sp3 - Leadership Thank You Letter sp3 - Work release form me1 Prescriptions: - EpiPen 0.3 mg/0.3 mL Injection Auto-Injector - administer 0.3 milliliter INTRAMUSCULAR route once; 2 milliliter; Refills: 0, sp3 Product Selection Permitted - Prednisone 20 mg Oral Tablet - take 2 tablets ORAL route once daily for 5 days; 10 tablet; Refills: 0, Product sp3 Selection Permitted Signatures: Dispatcher [employer] Bree Cohn MD MD sp3 Geraldine Michel RN RN nj1 Lucía Shell RN me1 Corrections: (The following items were deleted from the chart) 10:49 10:49 BASIC METABOLIC PANEL+C.LAB.BRZ ordered. EDMS EDMS 10:49 10:49 CBC+H.LAB.BRZ ordered. EDMS EDMS 10:49 10:49 HEPATIC FUNCTION+C.LAB.BRZ ordered. EDMS EDMS 10:49 10:49 PROTIME (+INR)+COAG.LAB.BRZ ordered. EDMS EDMS 10:49 10:49 PTT, ACTIVATED+COAG.LAB.BRZ ordered. EDMS EDMS
[2023-07-18 13:20] VITALS: TEMP 97.8
[2023-07-18 13:52] VITALS: BP 109/94; O2SAT 98
== END 2023-07-18 13:09 | disposition home or self-care (01) ==
LOC: ER 10:02
DX: L50.9 Urticaria, unspecified (principal); I10 Essential (primary) hypertension; Z98.82 Breast implant status; Z28.310 Unvaccinated for COVID-19
CPT/HCPCS: 85025; 80048; 36415; 85610; 80076; 85730; J1200; J7040

== ENCOUNTER 2023-11-02 16:37 | Emergency (ER) | payer OTHER ==
[2023-11-02 17:52] LABS: Absolute Eosinophils 0.2 K/uL (0-0.5); Absolute Lymphocytes (CBC) 2.5 K/uL (0.7-4.9); Absolute Monocytes 0.5 K/uL (0.1-1.3); Basophils % 0.8 % (0-1.3); Eosinophils % 2.8 % (0-4.4); Hemoglobin 11.8 g/dL (12.0-15.0); Lymphocytes % 40.6 % (15.3-44.8); MCH 32.5 pg (27.0-35.0); MCHC 32.7 g/dL (32.0-36.0); MCV 99.4 fL (80-100); Monocytes % 8.6 % (3.3-12.3); Neutrophils % 47.2 % (41.7-73.7); Nucleated Red Blood Cells % 0.1 % (0-0); Platelets 198 thou/uL (152-406); RBC Red Blood Cell Count 3.62 M/uL (3.86-4.86); Red Cell Distribution Width 15.7 % (12.1-15.2)
--- NOTE | 2023-11-02 18:16 | EDPHYS ---
Physician Documentation [facility] Name: Lamar Salvador Age: 48 yrs Sex: Female : 1975 Arrival Date: 11/02/2023 Time: 16:37 Bed DX1 Private MD: ED Physician Nelson Kumar HPI: 11/01 17:01 This 48 yrs old Female presents to ER via Ambulatory with complaints of Chest Pain, kb High Heart rate. 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 Reports intermittent shortness of breath. . Historical: - Allergies: 16:55 No Known Allergies; cm10 - PMHx: 16:55 Anemia; Anxiety; Hypertensive disorder; cm10 - PSHx: 16:55 breast augmentation; cm10 - Immunization history:: Adult Immunizations up to date. - Infectious Disease History:: Denies. - Social history:: Smoking status: Patient denies any tobacco usage or history of. ROS: 17:02 Constitutional: As per HPI kb Exam: 17:03 Constitutional: This is a well developed, well nourished patient who is awake, alert, kb and in no acute distress. Head/Face: Normocephalic, atraumatic. ENT: Moist Mucous membranes Cardiovascular: Regular rate Respiratory: Respirations even and unlabored. No increased work of breathing. Talking in full sentences Abdomen/GI: Soft, non-tender. No distention Skin: Warm, dry with normal turgor. Normal color. MS/ Extremity: Pulses equal, no cyanosis. Neurovascular intact. Full, normal range of motion. Neuro: Awake and alert, GCS 15, oriented to person, place, time, and situation. Moves all extremities. Normal gait. 17:13 ECG was reviewed by the Attending Physician. kb Vital Signs: 16:54 BP 129 / 85; Pulse 108; Resp 18; Temp 96.8(TE); Pulse Ox 98% on R/A; Weight 71.67 kg; cm10 Height 5 ft. 9 in. ; Pain 0/10; 18:48 BP 130 / 80; Pulse 90; Resp 16; Pulse Ox 99% on R/A; hb 16:54 Body Mass Index 23.33 (71.67 kg, 175.26 cm) cm10 16:54 Pain Scale: Adult cm10 MDM: 16:57 Patient medically screened. 17:03 Differential diagnosis: MN, abnormal EKG, electrolyte abnormality, hyperthyroidism, PE. kb Data reviewed: vital signs, nurses notes. 18:14 Test considered but Not performed: CT: CT chest for PE considered but d-dimer wnl. ED kb course: Pt states she is feeling better, thinks her symptoms were caused by anxiety and would like to be discharged. States she has plans tonight and doesn't want to wait on the rest of the results. . 11/01 17:03 Order name: Basic Metabolic Panel; Complete Time: 18:42 kb 11/01 17:03 Order name: CBC with Diff; Complete Time: 17:56 11/01 17:03 Order name: D-Dimer; Complete Time: 18:09 11/01 17:03 Order name: Troponin HS; Complete Time: 18:42 11/01 17:03 Order name: TSH; Complete Time: 18:42 11/01 17:03 Order name: XRAY Chest (1 view); Complete Time: 18:26 11/01 17:03 Order name: Cardiac monitoring 11/01 17:03 Order name: EKG - Nurse/Tech; Complete Time: 17:05 11/01 17:03 Order name: IV Saline Lock 11/01 17:03 Order name: Labs collected and sent 11/01 17:03 Order name: O2 Per Protocol 11/01 17:03 Order name: O2 Sat Monitoring EC:13 Rate is 106 beats/min. Rhythm is regular. QRS Elmer is Normal. AR interval is normal at kb 148 msec. QRS interval is normal at 76 msec. QT interval is normal at 486 msec. Administered Medications: No medications were administered Disposition Summary: 11/02/23 18:15 Discharge Ordered Notes: Location: Home Condition: Stable Diagnosis - Chest pain, unspecified kb - Palpitations kb Followup: kb - With: Emergency Department - When: As needed - Reason: Worsening of condition Followup: kb - With: Private Physician - When: 2 - 3 days - Reason: Recheck today's complaints, Continuance of care, Re-evaluation by your physician Discharge Instructions: - Discharge Summary Sheet kb - Nonspecific Chest Pain, Adult, [id number] kb - Panic Attack, [id number] kb - Palpitations, [id number] kb Forms: - Medication Reconciliation Form kb - Antibiotic Education kb - Prescription Opioid Use kb - Patient Portal Instructions kb - Leadership Thank You Letter kb Signatures: Dispatcher [employer] EDMS Joann Walters, PATENT CLERK-C TRACY-Rani Tate RN RN cm10 Corrections: (The following items were deleted from the chart) 17:03 17:03 BASIC METABOLIC PANEL+C.LAB.BRZ ordered. EDMS EDMS 17:03 17:03 CBC+H.LAB.BRZ ordered. EDMS EDMS 17:03 17:03 D-DIMER+COAG.LAB.BRZ ordered. EDMS EDMS 17:03 17:03 Troponin High Sensitivity+C.LAB.BRZ ordered. EDMS EDMS 17:03 17:03 THYROID STIMULAT HORMONE+C.LAB.BRZ ordered. EDMS EDMS 17:03 17:03 Chest Single View+RAD.RAD.BRZ ordered. EDMS EDMS
--- NOTE | 2023-11-02 18:16 | ER ---
Nurse's Notes [facility] Name: Lamar Salvador Age: 48 yrs Sex: Female : 1975 Arrival Date: 11/02/2023 Time: 16:37 Bed DX1 Private MD: Diagnosis: Chest pain, unspecified;Palpitations Presentation: 11/01 16:54 Chief complaint: Patient states: Chest pain to the left side of chest and feeling like cm10 her heart is racing onset today. Coronavirus screen: Client denies travel out of the [place] in the last 14 days. At this time, the client does not indicate any symptoms associated with coronavirus-19. Ebola Screen: Patient denies travel to an Ebola-affected area in the 21 days before illness onset. No symptoms or risks identified at this time. Initial Sepsis Screen: Does the patient meet any 2 criteria? HR > 90 bpm. No. Patient's initial sepsis screen is negative. Does the patient have a suspected source of infection? No. Patient's initial sepsis screen is negative. Risk Assessment: Do you want to hurt yourself or someone else? Patient reports no desire to harm self or others. Onset of symptoms was November 02, 2023. 16:54 Method Of Arrival: Ambulatory cm10 16:54 Acuity: CAL 2 cm10 Triage Assessment: 16:55 General: Appears in no apparent distress. comfortable, Behavior is anxious. Pain: cm10 Complains of pain in chest Pain currently is 0 out of 10 on a pain scale. Quality of pain is described as poking. Respiratory: No deficits noted. Airway is patent Respiratory effort is even, unlabored, Respiratory pattern is regular, symmetrical. Historical: - Allergies: 16:55 No Known Allergies; cm10 - PMHx: 16:55 Anemia; Anxiety; Hypertensive disorder; cm10 - PSHx: 16:55 breast augmentation; cm10 - Immunization history:: Adult Immunizations up to date. - Infectious Disease History:: Denies. - Social history:: Smoking status: Patient denies any tobacco usage or history of. Screenin:[address] [facility] ED Fall Risk Assessment (Adult) History of falling in the last 3 months, hb including since admission No falls in past 3 months (0 pts) Confusion or Disorientation No (0 pts) Intoxicated or Sedated No (0 pts) Impaired Gait No (0 pts) Mobility Assist Device Used No (0 pt) Altered Elimination No (0 pt) Score/Fall Risk Level 0 - 2 = Low Risk Oriented to surroundings, Maintained a safe environment, Educated pt \T\ family on fall prevention, incl call for assistance when getting out of bed. Abuse screen: Denies threats or abuse. Denies injuries from another. Nutritional screening: No deficits noted. Tuberculosis screening: No symptoms or risk factors identified. Assessment: 18:48 Reassessment: Patient appears in no apparent distress at this time. Patient and/or hb family updated on plan of care and expected duration. Pain level reassessed. Patient is alert, oriented x 3, equal unlabored respirations, skin warm/dry/pink. Patient states feeling better. Patient states symptoms have improved. Vital Signs: 16:54 BP 129 / 85; Pulse 108; Resp 18; Temp 96.8(TE); Pulse Ox 98% on R/A; Weight 71.67 kg; cm10 Height 5 ft. 9 in. ; Pain 0/10; 18:48 BP 130 / 80; Pulse 90; Resp 16; Pulse Ox 99% on R/A; hb 16:54 Body Mass Index 23.33 (71.67 kg, 175.26 cm) cm10 16:54 Pain Scale: Adult cm10 ED Course: 16:38 Patient arrived in ED. mr 16:55 Triage completed. cm10 16:56 Arm band placed on Patient placed in waiting room. EKG completed in triage. Results cm10 shown to MD. 16:56 EKG done, by ED staff, reviewed by Nelson Kumar MD. cm10 16:57 Joann Walters FNP-C is PHCP. kb 16:57 Nelson Kumar MD is Attending Physician. kb 17:42 XRAY Chest (1 view) In Process Unspecified. EDMS 17:47 TSH Sent. bc6 17:47 Basic Metabolic Panel Sent. bc6 17:47 CBC with Diff Sent. bc6 17:47 D-Dimer Sent. bc6 17:47 Troponin HS Sent. bc6 17:47 Initial lab(s) drawn, by me, sent to lab. Missed attempt(s): 20 gauge in left bc6 antecubital area. Bleeding controlled, band aid applied, catheter tip intact. 18:48 Patient has correct armband on for positive identification. Provided Education on: hb followup. Cardiac monitoring not applicable on this patient. 18:48 No provider procedures requiring assistance completed. Patient did not have IV access hb during this emergency room visit. Patient maintains SpO2 saturation greater than 95% on room air. Administered Medications: No medications were administered Medication: 18:48 VIS not applicable for this client. hb Outcome: 18:15 Discharge ordered by . jona 18:48 Discharged to home ambulatory, with significant other, hb 18:48 Condition: stable 18:48 Discharge instructions given to patient, significant other, Instructed on discharge instructions, follow up and referral plans. medication usage, Demonstrated understanding of instructions, follow-up care, medications, 18:49 Patient left the ED. hb Signatures: Dispatcher [employer] EDMS Joann Walters, FISHERY DIVISION CHIEF-C FISHERY DIVISION CHIEF-CkDoris Bee, Reg Reg mr WallLoretta, RN RN hb Marycruz Howard bc6 Rani Gaona, RN RN cm10
--- NOTE | 2023-11-02 18:18 | RAD REPORT ---
EXAM DESCRIPTION: Ellen Single View11/02/2023 5:40 pm CLINICAL HISTORY: Chest pain COMPARISON: 2022 FINDINGS: The lungs appear clear of acute infiltrate. The heart is normal size IMPRESSION: No acute abnormalities displayed
[2023-11-02 18:23] LABS: Anion Gap 9.8 mEq/L (5.0-15.0); Thyroid Stimulating Hormone 0.98 uIU/mL (0.358-3.740)
[2023-11-02 18:34] LABS: Potassium 3.8 mEq/L (3.5-5.1)
[2023-11-02 19:04] VITALS: TEMP 96.8
[2023-11-02 19:05] VITALS: BP 130/80; O2SAT 99
--- NOTE | 2023-11-04 13:50 | EKG ---
Test Date: 2023-11-02 Test Time: 16:58:21 Knot Tying Operator: HB MEASUREMENT RESULTS: Intervals: Rate: 106 KS: 148 QRSD: 76 QT: 366 QTc: 486 [place]: P: 58 KS: 148 QRS: -15 T: 35 INTERPRETIVE STATEMENTS: Sinus tachycardia Otherwise normal ECG Compared to ECG 06/28/2022 18:47:25 Sinus rhythm no longer present Electronically Signed On 11-04-23 13:45:33 CDT by Vaughn Robertson
== END 2023-11-02 18:49 | disposition home or self-care (01) ==
LOC: ER 16:37
DX: R07.9 Chest pain, unspecified (principal); R00.2 Palpitations; F41.9 Anxiety disorder, unspecified; I10 Essential (primary) hypertension; Z98.82 Breast implant status
CPT/HCPCS: 36415; 71045; 80048; 84443; 84484; 85025; 85379; 93005; 99284

== ENCOUNTER 2024-05-19 16:27 | Emergency (ER) | payer OTHER ==
[2024-05-19] MEDS ORDERED: MORPHINE 4 MG/ML SYR ONE (17:37)
[2024-05-19] MEDS ORDERED: ONDANSETRON 4 MG/2 ML VIAL ONE (17:37)
[2024-05-19] MEDS ORDERED: NA CHLORIDE 0.9% 1,000 ML ONE (17:38)
[2024-05-19 17:52] LABS: Absolute Basophils 0.1 K/uL (0-0.5); Absolute Eosinophils 0.1 K/uL (0-0.5); Absolute Neutrophil 7.9 K/uL (1.8-8.0); Basophils % 0.5 % (0-1.3); Eosinophils % 1.2 % (0-4.4); Hematocrit 40.7 % (36.0-45.0); Hemoglobin 13.7 g/dL (12.0-15.0); Lymphocytes % 17.6 % (15.3-44.8); MCH 30.7 pg (27.0-35.0); MCHC 33.7 g/dL (32.0-36.0); MCV 91.1 fL (80-100); MPV 7.9 fL (7.6-11.3); Monocytes % 9.4 % (3.3-12.3); Neutrophils % 71.3 % (41.7-73.7); Platelets 392 thou/uL (152-406); RBC Red Blood Cell Count 4.46 M/uL (3.86-4.86); Red Cell Distribution Width 18.8 % (12.1-15.2)
[2024-05-19 18:14] LABS: Albumin/Globulin Ratio 0.8 (1.1-1.8); Anion Gap 8.7 mEq/L (5.0-15.0); Bilirubin Total 0.7 mg/dL (0.2-1.0); Globulin 5.3 g/dL (2.3-3.5); Protein, Total 9.3 g/dL (6.4-8.2)
[2024-05-19 18:15] LABS: Potassium 3.7 mEq/L (3.5-5.1)
[2024-05-19 20:09] LABS: Specific Gravity > 1.030 (1.005-1.030)
[2024-05-19 20:11] LABS: Specific Gravity > 1.030 (1.005-1.030); Urine Bacteria <20 /HPF (<20); Urine Bilirubin NEGATIVE (Negative); Urine Blood 1+ (Negative); Urine Clarity Clear (Clear); Urine Color Colorless (Yellow); Urine Culture Reflex Order NOT NEEDED; Urine Glucose NEGATIVE (Negative); Urine Ketones TRACE (Negative); Urine Microscopic Reflex YN ORDER UMIC; Urine Mucus Slight /HPF (None Seen); Urine Nitrite NEGATIVE (Negative); Urine Protein NEGATIVE (Negative); Urine RBC <5 /HPF (None Seen); Urine Urobilinogen Normal (Normal); Urine WBC Clump Rare /HPF (None Seen); Urine Yeast (Budding) Trace /HPF (None Seen); Urine pH 6.5 (5.0-7.0)
--- NOTE | 2024-05-19 20:44 | RAD REPORT ---
EXAMINATION: CT Abdomen Pelvis W Contrast CLINICAL INDICATION: Female, 49 years old. ABD PAIN TECHNIQUE: CT abdomen and pelvis was performed, after the administration of IV [facility] Axial, sagittal and coronal reconstructions were obtained. One or more of the following dose reduction techniques were used: Automated exposure control, adjustment of the mA and k V according to patient size, and iterative reconstruction. Unless otherwise specified, incidental findings do not require dedicated imaging follow-up. COMPARISON: No prior exam. FINDINGS: LOWER CHEST: The visualized lung bases are clear. LIVER: Normal in size and contour. No focal lesion. BILIARY SYSTEM: No suspicious abnormalities. SPLEEN: Normal size. No focal lesion. PANCREAS: No mass, ductal dilation, or miguel-pancreatic fluid. ADRENALS: Normal; no mass. KIDNEYS: Normal size and contour. No hydronephrosis. URINARY BLADDER: Unremarkable. GASTROINTESTINAL TRACT: Mild fluid distention of the distal small bowel with air-fluid levels and mil d mucosal hyperenhancement. Short segment of wall thickening involving the terminal ileum, measuring approximately 9 cm in length. Mild to moderate free ascites. No evidence of free air, fluid collection, or abscess. APPENDIX: Normal appendix. LYMPH NODES: No lymphadenopathy. MUSCULOSKELETAL: No acute or suspicious osseous abnormality. ADDITIONAL FINDINGS: Lobulated fibroids centered at the fundus, with progressive hypodense component suggesting degeneration. IMPRESSION: Segmental wall thickening involving the terminal ileum measuring up to 9 cm, with more proximal mild fluid distention of the distal small bowel with mild mucosal hyperenhancement. Findings raise concern for infectious or inflammatory enteritis, with etiologies possibly including inflammatory bow el disease. Mild to moderate free ascites. No evidence of abnormal fluid collections or fistula formation. Fibroid uterus with interval changes of fibroid Degeneration.
--- NOTE | 2024-05-19 20:58 | EDPHYS ---
Physician Documentation [facility] Name: Lamar Salvador Age: 49 yrs Sex: Female : 1975 Arrival Date: 05/19/2024 Time: 16:27 Bed 5 Private MD: ED Physician Guy Rodriguez HPI: 05/19 16:44 This 49 yrs old Female presents to ER via Ambulatory with complaints of Abdominal Pain, kb Nausea/Vomiting. 16:44 Pt is a 49 year old female who presents for abd pain that started yesterday evening. kb Reports nausea and vomiting. Denies diarrhea, fever. Denies previous episodes. Reports pain is diffuse. . 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 - Infectious Disease History:: Denies. - Social history:: Smoking status: unknown. ROS: 16:44 Constitutional: As per HPI kb Exam: 16:44 Constitutional: This is a well developed, well nourished patient who is awake, alert, kb and in no acute distress. Head/Face: Normocephalic, atraumatic. ENT: Moist Mucous membranes Cardiovascular: Regular rate Respiratory: Respirations even and unlabored. No increased work of breathing. Talking in full sentences Skin: Warm, dry with normal turgor. Normal color. MS/ Extremity: Pulses equal, no cyanosis. Neurovascular intact. Full, normal range of motion. Neuro: Awake and alert, GCS 15, oriented to person, place, time, and situation. 16:44 Abdomen/GI: Inspection: abdomen appears normal, Bowel sounds: normal, Palpation: soft, in all quadrants, mild abdominal tenderness, in the left upper quadrant, moderate abdominal tenderness, in the right upper quadrant and right lower quadrant, Vital Signs: 16:36 BP 118 / 95; Pulse 130; Resp 18; Temp 97.8; Pulse Ox 99% on R/A; Weight 74.84 kg; iw Height 5 ft. 9 in. ; Pain 8/10; 17:59 BP 121 / 89; Pulse 110; Resp 17 S; Pulse Ox 100% on R/A; kc6 18:57 BP 109 / 81; Pulse 94; Resp 18 S; Pulse Ox 97% on R/A; kc6 19:45 BP 129 / 98; Pulse 93; Resp 17 S; Pulse Ox 100% on R/A; ha1 21:00 BP 116 / 90; Pulse 91; Resp 18; Temp 98.3(O); Pulse Ox 100% on R/A; ha1 21:30 BP 112 / 87; Pulse 89; Resp 17 S; Pulse Ox 100% on R/A; ha1 16:36 Body Mass Index 24.37 (74.84 kg, 175.26 cm) iw 16:36 Pain Scale: Adult iw MDM: 16:38 Medical Screening Exam initiated kb 20:46 Data reviewed: vital signs, nurses notes. kb 20:56 Differential diagnosis: gastritis, non-specific abd pain, enteritis, gastroenteritis, kb diverticulitis. Counseling: I had a detailed discussion with the patient and/or guardian regarding the historical points, exam findings, and any diagnostic results supporting the discharge/admit diagnosis, lab results, radiology results, the need for outpatient follow up, a family practitioner, a manager medicaid, to return to the emergency department if symptoms worsen or persist or if there are any questions or concerns that arise at home. 05/19 16:46 Order name: CBC with Diff; Complete Time: 17:58 kb 05/19 16:46 Order name: CMP; Complete Time: 18:16 kb 05/19 16:46 Order name: Lipase; Complete Time: 18:16 kb 05/19 16:46 Order name: Test, Urine; Complete Time: 20:11 kb 05/19 16:46 Order name: Urinalysis w/ reflexes; Complete Time: 20:12 kb 05/19 16:46 Order name: CT Abd/Pelvis - IV Contrast Only; Complete Time: 20:46 kb 05/19 16:46 Order name: IV Saline Lock; Complete Time: 17:59 kb 05/19 16:46 Order name: Labs collected and sent; Complete Time: 17:59 kb Administered Medications: 17:59 Drug: Ondansetron IVP 4 mg IVP once; over 2 minutes Route: IVP; Site: left antecubital; kc6 18:58 Follow up: Response: No adverse reaction kc6 17:59 Drug: morphine IVP or IV 4 mg IVP once over 4 mins Route: IVP; Infused Over: 4 mins; kc6 Site: left antecubital; 18:58 Follow up: Response: No adverse reaction; Pain is decreased; RASS: Alert and Calm (0) kc6 17:59 Drug: NS 0.9% IV 1000 ml IV at 1 bolus Per protocol; to be given as a bolus over 60 kc6 minutes Route: IV; Rate: 1 bolus; Site: left antecubital; 21:00 Follow up: Response: No adverse reaction; IV Status: Completed infusion; IV Intake: ha1 1000ml 21:20 Drug: Ciprofloxacin PO 500 mg PO once Route: PO; ha1 21:30 Follow up: Response: No adverse reaction ha1 21:20 Drug: metroNIDAZOLE PO 500 mg PO once Route: PO; ha1 21:30 Follow up: Response: No adverse reaction; Marked relief of symptoms ha1 Disposition: 05/20 07:07 Co-signature as Attending Physician, Guy Rodriguez MD I reviewed the patient's care rn provided by the Advanced Practice Provider and agree with the diagnosis and treatment plan. Disposition Summary: 05/19/24 20:57 Discharge Ordered Notes: Location: Home kb Condition: Stable kb Diagnosis - Enteritis kb Followup: kb - With: Emergency Department - When: As needed - Reason: Worsening of condition Followup: kb - With: Private Physician - When: 2 - 3 days - Reason: Recheck today's complaints, Continuance of care, Re-evaluation by your physician Discharge Instructions: - Discharge Summary Sheet kb - Viral Gastroenteritis, Adult, [id number] kb Forms: - Medication Reconciliation Form kb - Antibiotic Education kb - Prescription Opioid Use kb - Patient Portal Instructions kb - Leadership Thank You Letter kb - Work release form vc1 Prescriptions: - Cipro 500 mg Oral Tablet - take 1 tablet ORAL route every 12 hours for 10 days; 20 tablet; Refills: 0, kb Product Selection Permitted - Flagyl 500 mg Oral Tablet - take 1 tablet ORAL route every 8 hours for 10 days; 30 tablet; Refills: 0, kb Product Selection Permitted - Zofran 4 mg Oral tablet - take 1 tablet ORAL route every 6 hours As needed; 12 tablet; Refills: 0, kb Product Selection Permitted - dicyclomine 20 mg Oral tablet - take 1 tablet ORAL route 4 times per day As needed; 20 tablet; Refills: 0, kb Product Selection Permitted Signatures: Dispatcher [employer] EDMS Joann Walters, DRUG DISCOVERY INFORMATICS SPECIALIST-C DRUG DISCOVERY INFORMATICS SPECIALIST-Ckb Jacinta Marinelli, RN RN Guy Valadez MD MD rn Ayala, Heidy, RN RN ha1 Loly Flores RN RN kc6 Corrections: (The following items were deleted from the chart) 05/19 16:47 16:47 CBC+H.LAB.BRZ ordered. EDMS EDMS 16:47 16:47 COMPREHENSIVE METABOLIC PANEL+C.LAB.BRZ ordered. EDMS EDMS 16:47 16:47 LIPASE+C.LAB.BRZ ordered. EDMS EDMS 16:47 16:47 Test, Urine+UC.LAB.BRZ ordered. EDMS EDMS 16:47 16:47 Urinalysis+U.LAB.BRZ ordered. EDMS EDMS
--- NOTE | 2024-05-19 20:58 | ER ---
Nurse's Notes [facility] Name: Lamar Salvador Age: 49 yrs Sex: Female : 1975 Arrival Date: 05/19/2024 Time: 16:27 Bed 5 Private MD: Diagnosis: Enteritis Presentation: 05/19 16:36 Chief complaint: Patient states: bad abd pain since yesterday evening, feels like iw contractions , it's tender to touch and bloated , pain radiates across top of abd , last BM was two days ago and it was hard to go , took mag citrate and miralax today. Coronavirus screen: At this time, the client does not indicate any symptoms associated with coronavirus-19. Ebola Screen: No symptoms or risks identified at this time. Initial Sepsis Screen: Does the patient meet any 2 criteria? No. Patient's initial sepsis screen is negative. Does the patient have a suspected source of infection? No. Patient's initial sepsis screen is negative. Risk Assessment: Do you want to hurt yourself or someone else? Patient reports no desire to harm self or others. Onset of symptoms was May 18, 2024. 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 - Infectious Disease History:: Denies. - Social history:: Smoking status: unknown. Screenin:00 [facility] ED Fall Risk Assessment (Adult) History of falling in the last 3 months, kc6 including since admission No falls in past 3 months (0 pts) Confusion or Disorientation No (0 pts) Intoxicated or Sedated No (0 pts) Impaired Gait No (0 pts) Mobility Assist Device Used No (0 pt) Altered Elimination No (0 pt) Score/Fall Risk Level 0 - 2 = Low Risk Oriented to surroundings, Maintained a safe environment, Educated pt \T\ family on fall prevention, incl call for assistance when getting out of bed. Abuse screen: Denies threats or abuse. Denies injuries from another. Nutritional screening: No deficits noted. Tuberculosis screening: No symptoms or risk factors identified. Assessment: 18:44 General: Appears in no apparent distress. Behavior is calm, cooperative. Pain: Pain hb currently is 5 out of 10 on a pain scale. Neuro: Level of Consciousness is awake, alert, obeys commands, Oriented to person, place, time, situation. Cardiovascular: Patient's skin is warm and dry. Respiratory: Respiratory effort is even, unlabored, Respiratory pattern is regular, symmetrical. GI: Reports lower abdominal pain, upper abdominal pain, nausea, vomiting. : No signs and/or symptoms were reported regarding the genitourinary system. EENT: No signs and/or symptoms were reported regarding the EENT system. Derm: Skin is pink, warm \T\ dry. Musculoskeletal: No signs and/or symptoms reported regarding the musculoskeletal system. 19:35 General: Appears uncomfortable, Behavior is calm, cooperative. Pain: Complains of pain ha1 in pelvis Pain radiates to left upper quadrant and right lower quadrant Pain currently is 3 out of 10 on a pain scale. Quality of pain is described as pressure. Neuro: Level of Consciousness is awake, alert, obeys commands, Oriented to person, place, time, situation. Cardiovascular: Patient's skin is warm and dry. Respiratory: Airway is patent Respiratory effort is even, unlabored, Respiratory pattern is regular, symmetrical. GI: Abdomen is round distended, Bowel sounds present X 4 quads. Abdomen is tender to palpation X 4 quads. Reports lower abdominal pain, upper abdominal pain, flatulence, nausea, vomiting. 20:30 Reassessment: Patient and/or family updated on plan of care and expected duration. Pain ha1 level reassessed. Patient is alert, oriented x 3, equal unlabored respirations, skin warm/dry/pink. Patient states feeling better. Patient states symptoms have improved. 21:10 Reassessment: Patient and/or family updated on plan of care and expected duration. Pain ha1 level reassessed. Patient is alert, oriented x 3, equal unlabored respirations, skin warm/dry/pink. Vital Signs: 16:36 BP 118 / 95; Pulse 130; Resp 18; Temp 97.8; Pulse Ox 99% on R/A; Weight 74.84 kg; iw Height 5 ft. 9 in. ; Pain 8/10; 17:59 BP 121 / 89; Pulse 110; Resp 17 S; Pulse Ox 100% on R/A; kc6 18:57 BP 109 / 81; Pulse 94; Resp 18 S; Pulse Ox 97% on R/A; kc6 19:45 BP 129 / 98; Pulse 93; Resp 17 S; Pulse Ox 100% on R/A; ha1 21:00 BP 116 / 90; Pulse 91; Resp 18; Temp 98.3(O); Pulse Ox 100% on R/A; ha1 21:30 BP 112 / 87; Pulse 89; Resp 17 S; Pulse Ox 100% on R/A; ha1 16:36 Body Mass Index 24.37 (74.84 kg, 175.26 cm) iw 16:36 Pain Scale: Adult iw ED Course: 16:30 Patient arrived in ED. al6 16:38 Triage completed. iw 16:38 Joann Walters FNP-C is [facility]. kb 16:38 Guy Rodriguez MD is Attending Physician. kb 17:23 Arm band placed on Patient placed in an exam room, on a stretcher. ll1 17:33 Loly Flores, RN is Primary Nurse. 6 17:59 Initial lab(s) drawn, by me, sent to lab. Missed attempt(s): 18 gauge in right kc6 antecubital area. Inserted saline lock: 20 gauge in left antecubital area, using aseptic technique. Flushed with 10 mL NS. Patient maintains SpO2 saturation greater than 95% on room air. 18:00 Patient has correct armband on for positive identification. Bed in low position. Call [facility] light in reach. Side rails up X 1. Adult w/ patient. Pulse ox on. NIBP on. Door closed. Noise minimized. Lights dimmed. Pillow given. Verbal reassurance given. 19:23 CT Abd/Pelvis - IV Contrast Only In Process Unspecified. EDMS 21:33 Provided Education on: follow ups and medication administration . ha1 21:33 No provider procedures requiring assistance completed. IV discontinued, intact, ha1 bleeding controlled, No redness/swelling at site. Pressure dressing applied. Administered Medications: 17:59 Drug: Ondansetron IVP 4 mg IVP once; over 2 minutes Route: IVP; Site: left antecubital; [facility] 18:58 Follow up: Response: No adverse reaction [facility] 17:59 Drug: morphine IVP or IV 4 mg IVP once over 4 mins Route: IVP; Infused Over: 4 mins; kc6 Site: left antecubital; 18:58 Follow up: Response: No adverse reaction; Pain is decreased; RASS: Alert and Calm (0) [facility] 17:59 Drug: NS 0.9% IV 1000 ml IV at 1 bolus Per protocol; to be given as a bolus over 60 kc6 minutes Route: IV; Rate: 1 bolus; Site: left antecubital; 21:00 Follow up: Response: No adverse reaction; IV Status: Completed infusion; IV Intake: ha1 1000ml 21:20 Drug: Ciprofloxacin PO 500 mg PO once Route: PO; ha1 21:30 Follow up: Response: No adverse reaction 1 21:20 Drug: metroNIDAZOLE PO 500 mg PO once Route: PO; ha1 21:30 Follow up: Response: No adverse reaction; Marked relief of symptoms ha1 Medication: 18:44 VIS not applicable for this client. hb Intake: 21:00 IV: 1000ml; Total: 1000ml. ha1 Outcome: 20:57 Discharge ordered by . kb 21:33 Discharged to home ambulatory, ha1 21:33 Condition: stable 21:33 Discharge instructions given to patient, Instructed on discharge instructions, follow up and referral plans. medication usage, Demonstrated understanding of instructions, follow-up care, medications, Prescriptions given X 4, 21:34 Patient left the ED. ha1 Signatures: Dispatcher [employer] EDMS Joann Walters, DRAGLINE OILER-C DRAGLINE OILER-Ckb Jacinta Marinelli RN RN Loretta Wall RN RN Sunil Carlton RN RN ll1 Ayala, Heidy, RN RN ha1 Loly Flores RN RN kc6 Glenis Escalera al6 Corrections: (The following items were deleted from the chart) 16:39 16:36 Chief complaint: Patient states: bad abd pain since yesterday evening, feels like iw contractions , it's tender to touch and bloated , pain radiates across top of abd iw 16:40 16:36 BP 118 / 95; Pulse 130bpm; Resp 18bpm; Pulse Ox 99% RA; Temp 97.8F; iw iw 05/20 00:21 05/19 21:50 Response: No adverse reaction; Marked relief of symptoms ha1 ha1
[2024-05-19] MEDS ORDERED: metroNIDAZOLE 500 MG TABLET ONE (21:21)
[2024-05-19] MEDS ORDERED: CIPROFLOXACIN HCL 500 MG TAB ONE (21:21)
[2024-05-19 21:55] VITALS: TEMP 97.8
[2024-05-19 22:00] VITALS: BP 129/98; O2SAT 100
== END 2024-05-19 21:34 | disposition home or self-care (01) ==
LOC: ER 16:27
DX: K52.9 Noninfective gastroenteritis and colitis, unspecified (principal); Z98.82 Breast implant status
CPT/HCPCS: 85025; 81001; 36415; 81025; 83690; 80053; 74177; Q9967; J2405; J7030; 96361; 96374; 96375; 99284

== ENCOUNTER 2024-12-14 11:26 | Emergency (ER) | payer OTHER, SELFPAY ==
[2024-12-14] MEDS ORDERED: DICYCLOMINE HCL 10 MG CAP ONE (11:54)
[2024-12-14] MEDS ORDERED: ONDANSETRON 4 MG/2 ML VIAL ONE (11:54)
[2024-12-14] MEDS ORDERED: NA CHLORIDE 0.9% 1,000 ML ONE (11:55)
[2024-12-14] MEDS ORDERED: FAMOTIDINE 20 MG/2 ML VIAL IV ONE (11:55)
[2024-12-14 11:58] LABS: Absolute Lymphocytes (CBC) 2.5 K/uL (0.7-4.9); Hematocrit 38.4 % (36.0-45.0); Hemoglobin 12.9 g/dL (12.0-15.0); MCH 28.4 pg (27.0-35.0); MCHC 33.5 g/dL (32.0-36.0); MCV 84.6 fL (80-100); MPV 7.4 fL (7.6-11.3); Nucleated RBC Absolute Count 0.0 (0-0); Nucleated Red Blood Cells % 0.0 % (0-0); RBC Red Blood Cell Count 4.53 M/uL (3.86-4.86); White Blood Count 10.30 thou/uL (4.3-10.9)
[2024-12-14 12:19] LABS: ALT/SGPT 19.0 U/L (13-56); AST/SGOT 14.0 U/L (15-37); Albumin 3.4 g/dL (3.4-5.0); Albumin/Globulin Ratio 0.8 (1.1-1.8); Alkaline Phosphatase 53.0 U/L (45-117); Anion Gap 7.9 mEq/L (5.0-15.0); BUN Blood Urea Nitrogen 15.0 mg/dL (7-18); Globulin 4.1 g/dL (2.3-3.5); Glucose Level 125.0 mg/dL (74-106); Lipase 21.0 U/L (13-75); Potassium 2.9 mEq/L (3.5-5.1)
--- NOTE | 2024-12-14 13:00 | RAD REPORT ---
EXAMINATION: Abdomen Pelvis W Contrast CLINICAL INDICATION: Female, 49 years old.ABD PAIN TECHNIQUE: CT abdomen and pelvis was performed, after the administration of IV contrast, as per [facility]. Axial, sagittal and coronal reconstructions were obtained. One or more of the following dose reduction techniques were used: Automated exposure control, adjustment of the mA and/o r kV according to patient size, and/or iterative reconstruction. Unless otherwise specified, incidental findings do not require dedicated imaging follow-up. [id number]. COMPARISON: 12/14/2024 FINDINGS: LOWER CHEST: Bilateral breast prosthesesNo significant pericardial effusion. UPPER GI: No significant abnormality. LIVER: No significant focal abnormality. GALLBLADDER/BILE DUCTS: No biliary ductal dilatation.? PANCREAS: No mass, ductal dilation, or miguel-pancreatic fluid. SPLEEN: Unremarkable. ADRENALS: No adrenal masses. KIDNEYS AND URETERS: No hydronephrosis.No suspicious renal mass.No renal calculi.No ureteral calculi. ABDOMINAL AORTA AND OTHER VESSELS: Normal caliber aorta and IVC. PERITONEUM: Mild ascites. LYMPH NODES: No pathologic lymphadenopathy. ABDOMINAL WALL: Unremarkable SMALL BOWEL/COLON: Segmental wall thickening of the small bowel with associated mesenteric edema in t he central abdomen and left upper quadrant. No appendicitis. URINARY BLADDER: Underdistended but grossly unremarkable. REPRODUCTIVE ORGANS: Multiple uterine fibroids. MUSCULOSKELETAL: No acute or suspicious osseous abnormality. ADDITIONAL FINDINGS: None. IMPRESSION: Segmental wall thickening with mesenteric edema involving portions of the jejunum rather than the [place] ileum as was seen on the prior CT. This is concerning for presence of an enteritis, either infectious or inflammatory. Mild abdominopelvic ascites which was also present on the prior exam.. No bowel obstruction.
--- NOTE | 2024-12-14 13:09 | EDPHYS ---
Physician Documentation [facility] Name: Lamar Salvador Age: 49 yrs Sex: Female : 1975 Arrival Date: 12/14/2024 Time: 11:26 Bed 20 Private MD: ED Physician Guy Rodriguez HPI: 12/14 11:41 This 49 yrs old Female presents to ER via Unassigned with complaints of Abdominal Pain, kb Vomiting. 11:41 Pt is a 49 year old female who presents for nausea, vomiting and abd pain that started kb yesterday. Denies fever or diarrhea. States she did have chills yesterday. Last vomited at 0200. Has been tolerating po intake this morning. . Historical: - Allergies: 11:43 No Known Allergies; ss - PMHx: 11:43 Anemia; Anxiety; Hypertensive disorder; ss - PSHx: 11:43 breast augmentation; ss - Immunization history:: Adult Immunizations up to date. - Infectious Disease History:: Denies. - Social history:: Smoking status: Patient denies any tobacco usage or history of. ROS: 11:40 Constitutional: As per HPI kb Exam: 11:40 Constitutional: This is a well developed, well nourished patient who is awake, alert, kb and in no acute distress. Head/Face: Normocephalic, atraumatic. ENT: Moist Mucous membranes Respiratory: Respirations even and unlabored. No increased work of breathing. Talking in full sentences Skin: Warm, dry with normal turgor. Normal color. MS/ Extremity: Pulses equal, no cyanosis. Neurovascular intact. Full, normal range of motion. Neuro: Awake and alert, GCS 15, oriented to person, place, time, and situation. 11:40 Abdomen/GI: Inspection: abdomen appears normal, Bowel sounds: normal, Palpation: soft, in all quadrants, mild abdominal tenderness, in all quadrants, Vital Signs: 11:41 BP 127 / 82; Pulse 105; Resp 16; Pulse Ox 97% on R/A; Weight 66.68 kg; Height 5 ft. 9 ss in. ; Pain 10/10; 12:15 BP 104 / 75; Pulse 83; Resp 16; Pulse Ox 100% ; me1 13:00 BP 103 / 71; Pulse 86; Resp 17; Pulse Ox 100% ; me1 11:41 Body Mass Index 21.71 (66.68 kg, 175.26 cm) ss 11:41 Pain Scale: Adult ss MDM: 11:31 Medical Screening Exam initiated kb 11:40 Differential diagnosis: gastritis, non-specific abd pain, pancreatitis, enteritis. Data kb reviewed: vital signs, nurses notes. 13:08 Counseling: I had a detailed discussion with the patient and/or guardian regarding the kb historical points, exam findings, and any diagnostic results supporting the discharge/admit diagnosis, lab results, radiology results, the need for outpatient follow up, a family practitioner, to return to the emergency department if symptoms worsen or persist or if there are any questions or concerns that arise at home. 12/14 11:40 Order name: CBC with Diff; Complete Time: 12:05 kb 12/14 11:40 Order name: CMP; Complete Time: 12:22 kb 12/14 11:40 Order name: Lipase; Complete Time: 12:22 kb 12/14 11:40 Order name: CT Abd/Pelvis - IV Contrast Only; Complete Time: 13:07 kb 12/14 11:40 Order name: IV Saline Lock; Complete Time: 11:53 kb 12/14 11:40 Order name: Labs collected and sent; Complete Time: 11:53 kb Administered Medications: 12:00 Drug: Famotidine IVP 20 mg IVP once; dilute with 10 mL 0.9% NaCl; give over 2 minutes me1 Route: IVP; Site: right antecubital; 13:06 Follow up: Response: No adverse reaction me1 12:00 Drug: Ondansetron IVP 4 mg IVP once; over 2 minutes Route: IVP; Site: right antecubital;me1 13:06 Follow up: Response: No adverse reaction; Nausea is decreased me1 12:00 Drug: NS 0.9% IV 1000 ml IV at 1 bolus Per protocol; to be given as a bolus over 60 me1 minutes Route: IV; Rate: 1 bolus; Site: right antecubital; 13:39 Follow up: Response: No adverse reaction; IV Status: Completed infusion; IV Intake: cm10 1000ml 12:00 Drug: Dicyclomine PO 20 mg PO once Route: PO; me1 13:06 Follow up: Response: No adverse reaction; Pain is decreased me1 13:34 Drug: Potassium PO Effervescent Tablet 50 mEq PO once; dissolve in 4 ounces of water or cm10 juice Route: PO; 13:37 Follow up: Response: No adverse reaction cm10 13:34 Drug: Ciprofloxacin PO 500 mg PO once Route: PO; cm10 13:37 Follow up: Response: No adverse reaction cm10 13:34 Drug: metroNIDAZOLE PO 500 mg PO once Route: PO; cm10 13:37 Follow up: Response: No adverse reaction cm10 Disposition: 17:08 Co-signature as Attending Physician, Guy Rodriguez MD I reviewed the patient's care rn provided by the Advanced Practice Provider and agree with the diagnosis and treatment plan. Disposition Summary: 12/14/24 13:09 Discharge Ordered Notes: Location: Home kb Condition: Stable kb Diagnosis - Enteritis kb - Hypokalemia kb Followup: kb - With: Emergency Department - When: As needed - Reason: Worsening of condition Followup: kb - With: Private Physician - When: 2 - 3 days - Reason: Recheck today's complaints, Continuance of care, Re-evaluation by your physician Discharge Instructions: - Discharge Summary Sheet kb - Viral Gastroenteritis, Adult, [id number] kb - Hypokalemia kb Forms: - Medication Reconciliation Form kb - Antibiotic Education kb - Prescription Opioid Use kb - Patient Portal Instructions kb - Leadership Thank You Letter kb - Work release form cm10 Prescriptions: - ondansetron 4 mg Oral Tablet,disintegrating - take 1 tablet ORAL route every 6 hours as needed for nausea and vomiting; 12 kb tablet; Refills: 0, Product Selection Permitted - Cipro 500 mg Oral Tablet - take 1 tablet ORAL route every 12 hours for 10 days; 20 tablet; Refills: 0, kb Product Selection Permitted - Flagyl 500 mg Oral Tablet - take 1 tablet ORAL route every 8 hours for 10 days; 30 tablet; Refills: 0, kb Product Selection Permitted - dicyclomine 20 mg Oral tablet - take 1 tablet ORAL route 4 times per day As needed; 20 tablet; Refills: 0, kb Product Selection Permitted Signatures: Dispatcher [employer] Joann Modi, Guy Garcia MD MD rn Blanchard, Shelby, RN RN Rani Gaona RN RN 10 Lucía Shell RN RN [facility]
--- NOTE | 2024-12-14 13:09 | ER ---
Nurse's Notes [facility] Name: Lamar Salvador Age: 49 yrs Sex: Female : 1975 Arrival Date: 12/14/2024 Time: 11:26 Bed 20 Private MD: Diagnosis: Enteritis;Hypokalemia Presentation: 12/14 11:41 Chief complaint: Patient states: abd cramping, N/V and bloating that began yesterday. ss Coronavirus screen: Client denies travel out of the [place] in the last 14 days. Ebola Screen: Patient denies exposure to infectious person. Patient denies travel to an Ebola-affected area in the 21 days before illness onset. Initial Sepsis Screen: Does the patient meet any 2 criteria? No. Patient's initial sepsis screen is negative. Does the patient have a suspected source of infection? No. Patient's initial sepsis screen is negative. Risk Assessment: Do you want to hurt yourself or someone else? Patient reports no desire to harm self or others. Onset of symptoms was December 13, 2024. 11:41 Method Of Arrival: Ambulatory 11:41 Acuity: CAL 3 ss Historical: - Allergies: 11:43 No Known Allergies; ss - PMHx: 11:43 Anemia; Anxiety; Hypertensive disorder; ss - PSHx: 11:43 breast augmentation; ss - Immunization history:: Adult Immunizations up to date. - Infectious Disease History:: Denies. - Social history:: Smoking status: Patient denies any tobacco usage or history of. Screenin:45 [facility] ED Fall Risk Assessment (Adult) History of falling in the last 3 months, me1 including since admission No falls in past 3 months (0 pts) Confusion or Disorientation No (0 pts) Intoxicated or Sedated No (0 pts) Impaired Gait No (0 pts) Mobility Assist Device Used No (0 pt) Altered Elimination No (0 pt) Score/Fall Risk Level 0 - 2 = Low Risk Maintained a safe environment, Provided non-skid footwear, Hourly rounding (assess needs \T\ fall precautionary measures) done. Abuse screen: Denies threats or abuse. Nutritional screening: No deficits noted. Tuberculosis screening: No symptoms or risk factors identified. Assessment: 11:45 General: Appears uncomfortable, ill, well groomed, well developed, well nourished, me1 Behavior is calm, cooperative, appropriate for age, Reports abd cramping, N/V and bloating that began yesterday. Pain: Complains of pain in abdomen diffusely Pain does not radiate. Pain currently is 10 out of 10 on a pain scale. Quality of pain is described as crampy, Pain began 1 day ago. Is intermittent. Neuro: Level of Consciousness is awake, alert, obeys commands, Oriented to person, place, time, situation, Appropriate for age. Cardiovascular: Patient's skin is warm and dry. Respiratory: Airway is patent Respiratory effort is even, unlabored, Respiratory pattern is regular, symmetrical. GI: Abdomen is distended, Bowel sounds present X 4 quads. Abd is soft X 4 quads Reports cramping, nausea, vomiting, since yesterday. : No signs and/or symptoms were reported regarding the genitourinary system. EENT: No signs and/or symptoms were reported regarding the EENT system. Derm: Skin is intact, is healthy with good turgor, Skin is normal. Musculoskeletal: Circulation, motion, and sensation intact. Range of motion: intact in all extremities. Vital Signs: 11:41 BP 127 / 82; Pulse 105; Resp 16; Pulse Ox 97% on R/A; Weight 66.68 kg; Height 5 ft. 9 ss in. ; Pain 10/10; 12:15 BP 104 / 75; Pulse 83; Resp 16; Pulse Ox 100% ; me1 13:00 BP 103 / 71; Pulse 86; Resp 17; Pulse Ox 100% ; me1 11:41 Body Mass Index 21.71 (66.68 kg, 175.26 cm) ss 11:41 Pain Scale: Adult ss ED Course: 11:28 Patient arrived in ED. al6 11:31 Joann Walters FNP-C [facility]. kb 11:31 Guy Rodriguez MD is Attending Physician. kb 11:43 Triage completed. ss 11:45 No provider procedures requiring assistance completed. me1 11:45 Patient has correct armband on for positive identification. Bed in low position. Call me1 light in reach. Side rails up X2. Provided Education on: POC. Verbalized understanding.. Client placed on continuous cardiac and pulse oximetry monitoring. NIBP monitoring applied. Pulse ox on. NIBP on. Warm blanket given. 11:52 Lucía Shell, RN is Primary Nurse. me1 11:52 Initial lab(s) drawn, by me, sent to lab. Inserted saline lock: 20 gauge in right rk3 antecubital area, using aseptic technique. Blood collected. Flushed with 10 mL NS. 12:39 CT Abd/Pelvis - IV Contrast Only In Process Unspecified. EDMS 13:38 IV discontinued, intact, bleeding controlled, No redness/swelling at site. Pressure cm10 dressing applied. 13:38 Arm band placed on. cm10 Administered Medications: 12:00 Drug: Famotidine IVP 20 mg IVP once; dilute with 10 mL 0.9% NaCl; give over 2 minutes me1 Route: IVP; Site: right antecubital; 13:06 Follow up: Response: No adverse reaction me1 12:00 Drug: Ondansetron IVP 4 mg IVP once; over 2 minutes Route: IVP; Site: right antecubital;me1 13:06 Follow up: Response: No adverse reaction; Nausea is decreased me1 12:00 Drug: NS 0.9% IV 1000 ml IV at 1 bolus Per protocol; to be given as a bolus over 60 me1 minutes Route: IV; Rate: 1 bolus; Site: right antecubital; 13:39 Follow up: Response: No adverse reaction; IV Status: Completed infusion; IV Intake: cm10 1000ml 12:00 Drug: Dicyclomine PO 20 mg PO once Route: PO; me1 13:06 Follow up: Response: No adverse reaction; Pain is decreased me1 13:34 Drug: Potassium PO Effervescent Tablet 50 mEq PO once; dissolve in 4 ounces of water or cm10 juice Route: PO; 13:37 Follow up: Response: No adverse reaction cm10 13:34 Drug: Ciprofloxacin PO 500 mg PO once Route: PO; cm10 13:37 Follow up: Response: No adverse reaction cm10 13:34 Drug: metroNIDAZOLE PO 500 mg PO once Route: PO; cm10 13:37 Follow up: Response: No adverse reaction cm10 Medication: 11:45 VIS not applicable for this client. me1 Intake: 13:39 IV: 1000ml; Total: 1000ml. cm10 Outcome: 13:09 Discharge ordered by MD. teonrio 13:38 Discharged to home ambulatory, cm10 13:38 Condition: good 13:38 Discharge instructions given to patient, Instructed on discharge instructions, follow up and referral plans. medication usage, Demonstrated understanding of instructions, follow-up care, medications, Prescriptions given X 4, 13:38 Patient left the ED. cm10 Signatures: Dispatcher [employer] EDCT Joann Walters, CLIENT SERVICES ADMINISTRATOR-C CLIENT SERVICES ADMINISTRATOR-CkJolanta Payne RN RN Rani Gaona RN RN 10 Lucía Shell RN RN nv1 Glenis Escalera al6 Jacklyn Bee rk3 Corrections: (The following items were deleted from the chart) 13:02 11:41 Chief complaint: Patient states: abd cramping, N/V and bloating that began me1 yesterday
[2024-12-14] MEDS ORDERED: POTASSIUM 25 MEQ EFFERV TAB ONE (13:22)
[2024-12-14] MEDS ORDERED: CIPROFLOXACIN HCL 500 MG TAB ONE (13:22)
[2024-12-14 13:45] VITALS: O2SAT 100
[2024-12-14 13:47] VITALS: BP 103/71
== END 2024-12-14 13:38 | disposition home or self-care (01) ==
LOC: ER 11:26
DX: K52.9 Noninfective gastroenteritis and colitis, unspecified (principal); E87.6 Hypokalemia
CPT/HCPCS: 96361; 85025; 36415; 83690; 80053; 74177; 96375; 96374; 99284; Q9967; J2405; J7030